=== PATIENT | male | born 1965 | race African-American/Black ===

== ENCOUNTER 2016-03-02 19:22 | Inpatient (IN) | payer OTHER ==
[~2016-03-02] VITALS: Ht 165.1 cm; Wt 78.0 kg
[~2016-03-02 19:22] MED LIST: ASPIRIN EC325 MG PO; FAMOTIDINE20 MG PO; FOLIC ACID1 MG PO; KEFLEX500 MG PO; LIBRIUM25 MG PO; LOSARTAN POTASS25 MG PO; METOPROLOL SUCC25 MG PO; MOTRIN800 MG PO; NIFEDIPINE ER30 MG PO; NORCO 7.5/321 TABLET PO; PRAVASTATIN SOD40 MG PO; THERAGRAN1 TABLET PO; THIAMINE HCL100 MG PO; Thiamine,Vitamin B1 PO
[2016-03-02 20:53] LABS: AMPHETAMINE NEGATIVE (500 ng/mL); BARBITURATES NEGATIVE (200 ng/mL); BENZODIAZEPINES NEGATIVE (150 ng/mL); COCAINE NEGATIVE (150 ng/mL); INTERNAL CONTROLS VALID? YES; METHADONE NEGATIVE (200 ng/mL); METHAMPHETAMINE NEGATIVE (500 ng/mL); OPIATES (MORPHINE) NEGATIVE (100 ng/mL); OXYCODONE NEGATIVE (100 ng/mL); PHENCYCLIDINE NEGATIVE (25 ng/mL); PROPOXYPHENE NEGATIVE (300 ng/mL); THC CANNABINOIDS NEGATIVE (50 ng/mL); TRICYCLIC ANTIDEPRESSANTS NEGATIVE (300 ng/mL)
[2016-03-02 21:02] LABS: SERUM ETHYL ALCOHOL < 10 mg/dL
[2016-03-02 21:11] LABS: CK-MB 4.8 ng/mL (0.0-4.9); CREATINE KINASE 372 IU/L (1-294); EOSINOPHIL (%) 0.3 % (0-5); HEMATOCRIT 36.2 % (38.0-50.0); IMMATURE GRANULOCYTE (%) 0.1 % (0.0-0.7); IMMATURE GRANULOCYTE COUNT 0.1 K/uL; LYMPHOCYTE COUNT 1.3 K/uL (1.0-2.8); MCH 28.1 PG (29.0-34.0); MCHC 33.7 G/DL (30.0-36.0); MCV 83.4 FL (86-99); MEAN PLAT.VOLUME 10.4 uM^3 (9.0-12.4); MONOCYTE (%) 4.4 % (3-12); MONOCYTE COUNT 0.5 K/uL (0-0.8); NEUTROPHIL (%) 83.6 % (45-76); NEUTROPHIL COUNT 9.3 K/uL (1.8-6.4); PLATELET COUNT 181 K/uL (156-360); RBC DIS.WIDTH-CV 13.8 % (11.8-14.6); RBC DIS.WIDTH-SD 40.8 % (39-53); RED BLOOD COUNT 4.34 M/uL (4.00-5.50); TOTAL CK 372 IU/L (1-294); WHITE BLOOD COUNT 11.2 K/uL (4.1-10.2)
[2016-03-02 21:12] LABS: TROP-I INTERPRETATION NEGATIVE; TROPONIN-I 0.25 ng/mL (0.0-0.30)
[2016-03-02 21:19] LABS: CHLORIDE 109 mEq/L (99-109); POTASSIUM 4.3 mEq/L (3.7-5.4); SODIUM 141 mEq/L (136-147)
[2016-03-02 21:21] LABS: GLUCOSE 170 mg/dL (70-99)
[2016-03-02 21:23] LABS: ANION GAP 10 MEQ/L (2-14); TOTAL BILIRUBIN 0.2 mg/dL (0.0-1.0)
[2016-03-02 21:25] LABS: ALKALINE PHOSPHATASE 79 IU/L (3-129); GFR ESTIMATE (CALCULATED) > 59 mL/min/
[2016-03-02 21:26] LABS: UREA NITROGEN (BUN) 16 mg/dL (9-23)
[2016-03-03 02:35] LABS: MAGNESIUM 2.3 mg/dL (1.3-2.7)
[2016-03-03 02:39] LABS: TOTAL BILIRUBIN 0.2 mg/dL (0.0-1.0)
[2016-03-03 02:40] LABS: ALKALINE PHOSPHATASE 77 IU/L (3-129)
[2016-03-03 02:42] LABS: DIRECT BILIRUBIN 0.1 mg/dL (0.0-0.3)
[2016-03-03 02:49] LABS: TROP-I INTERPRETATION NEGATIVE; TROPONIN-I 0.16 ng/mL (0.0-0.30)
[2016-03-03 03:42] VITALS: BP 159/92
[2016-03-03 08:02] VITALS: BP 154/95
[2016-03-03 09:27] LABS: ALKALINE PHOSPHATASE 68 IU/L (3-129); ANION GAP 8 MEQ/L (2-14); CHLORIDE 111 MEQ/L (99-109); GFR ESTIMATE (CALCULATED) > 59 mL/min/; GLUCOSE 121 mg/dL (70-99); SAMPLE HEMOLYSIS CHECK 0; SAMPLE ICTERIC CHECK 0; SAMPLE LIPEMIA CHECK 0; SODIUM 141 MEQ/L (136-147); TOTAL BILIRUBIN 0.3 MG/DL (0.0-1.0); UREA NITROGEN (BUN) 12 mg/dL (9-23)
[2016-03-03 09:39] LABS: TROP-I INTERPRETATION NEGATIVE; TROPONIN-I 0.27 ng/mL (0.0-0.30)
[2016-03-03 10:04] LABS: CREATINE KINASE 252 IU/L (1-294); TOTAL CK 252 IU/L (1-294)
[2016-03-03 10:05] LABS: CK-MB 3.8 ng/mL (0.0-4.9)
[2016-03-03 11:38] VITALS: BP 184/87
[2016-03-03 15:40] LABS: TROP-I INTERPRETATION INDETERMINATE; TROPONIN-I 0.32 ng/mL (0.0-0.30)
[2016-03-03 15:44] VITALS: BP 180/90
[2016-03-03 20:50] VITALS: BP 172/89
[2016-03-03 21:22] LABS: TROP-I INTERPRETATION INDETERMINATE; TROPONIN-I 0.35 ng/mL (0.0-0.30)
[2016-03-04] VITALS (7 sets, daily range): BP systolic 154–183; BP diastolic 87–109
[2016-03-04 03:46] LABS: TROP-I INTERPRETATION INDETERMINATE; TROPONIN-I 0.42 ng/mL (0.0-0.30)
[2016-03-04 09:55] LABS: HEMATOCRIT 37.2 % (38.0-50.0); MCH 27.7 PG (29.0-34.0); MCHC 33.1 G/DL (30.0-36.0); MCV 83.8 FL (86-99); MEAN PLAT.VOLUME 10.5 uM^3 (9.0-12.4); PLATELET COUNT 162 K/uL (156-360); RBC DIS.WIDTH-CV 13.6 % (11.8-14.6); RBC DIS.WIDTH-SD 41.8 % (39-53); RED BLOOD COUNT 4.44 M/uL (4.00-5.50); WHITE BLOOD COUNT 7.9 K/uL (4.1-10.2)
[2016-03-04 10:15] LABS: ANION GAP 8 MEQ/L (2-14); CHLORIDE 106 MEQ/L (99-109); CREATINE KINASE 191 IU/L (1-294); GFR ESTIMATE (CALCULATED) > 59 mL/min/; GLUCOSE 166 mg/dL (70-99); POTASSIUM 3.9 MEQ/L (3.7-5.4); SAMPLE HEMOLYSIS CHECK 0; SAMPLE ICTERIC CHECK 0; SAMPLE LIPEMIA CHECK 0; SODIUM 139 MEQ/L (136-147); UREA NITROGEN (BUN) 11 mg/dL (9-23)
[2016-03-04 10:18] LABS: TROP-I INTERPRETATION NEGATIVE; TROPONIN-I 0.24 ng/mL (0.0-0.30)
[2016-03-04 15:37] LABS: TROP-I INTERPRETATION NEGATIVE; TROPONIN-I 0.22 ng/mL (0.0-0.30)
[2016-03-04 21:16] LABS: TROP-I INTERPRETATION NEGATIVE; TROPONIN-I 0.23 ng/mL (0.0-0.30)
[2016-03-05 03:16] LABS: TROP-I INTERPRETATION INDETERMINATE; TROPONIN-I 0.38 ng/mL (0.0-0.30)
[2016-03-05 04:00] VITALS: BP 160/91
[2016-03-05 07:48] VITALS: BP 158/101
[2016-03-05 10:07] LABS: Estimated Average Glucose 128 mg/dL (70-123); HEMOGLOBIN A1c (GLYCOHEMOGLOB) 6.1 % HGB (Below 5.7)
[2016-03-05 10:15] LABS: HDL CHOLESTEROL 46 MG/DL (Desirable>=40); LDL CHOLESTEROL 113 mg/dL (Desirable<100); NON-HDL CHOLESTEROL 144 mg/dL (Desirable<160); TOTAL CHOLESTEROL 190 mg/dL (Desirable<200); TRIGLYCERIDES 155 MG/DL (Normal: <150)
[2016-03-05 11:40] VITALS: BP 135/68
[2016-03-05 18:35] LABS: POINT-OF-CARE METER ID UU13113819
[2016-03-05 20:12] VITALS: BP 174/95
[2016-03-05 21:58] LABS: POINT-OF-CARE METER ID UU14174216; POINT-OF-CARE USER ID ENVMNS
[2016-03-05 23:30] VITALS: BP 178/98
[2016-03-06 03:24] LABS: TROP-I INTERPRETATION POSITIVE
[2016-03-06 03:32] LABS: TROPONIN-I 0.64 ng/mL (0.0-0.30)
[2016-03-06 04:22] VITALS: BP 161/92
[2016-03-06 07:25] LABS: POINT-OF-CARE METER ID UU13113781
[2016-03-06 09:08] VITALS: BP 136/96
[2016-03-06 10:30] LABS: TROP-I INTERPRETATION POSITIVE
[2016-03-06 10:33] LABS: TROPONIN-I 1.97 ng/mL (0.0-0.30)
[2016-03-06 11:15] LABS: POINT-OF-CARE METER ID UU13113781
[2016-03-06 13:16] VITALS: BP 135/82
[2016-03-06 15:38] LABS: TROP-I INTERPRETATION POSITIVE; TROPONIN-I 1.84 ng/mL (0.0-0.30)
[2016-03-06 16:19] VITALS: BP 134/81
[2016-03-06 16:50] LABS: POINT-OF-CARE METER ID UU13113781
[2016-03-06 20:00] VITALS: BP 124/71
[2016-03-06 20:47] LABS: POINT-OF-CARE METER ID UU13113781; POINT-OF-CARE USER ID ENVMNS
[2016-03-06 21:19] LABS: TROP-I INTERPRETATION POSITIVE
[2016-03-06 21:21] LABS: TROPONIN-I 1.85 ng/mL (0.0-0.30)
[2016-03-07] VITALS: BP 125/79
[2016-03-07 03:21] LABS: TROP-I INTERPRETATION POSITIVE
[2016-03-07 03:39] LABS: TROPONIN-I 2.83 ng/mL (0.0-0.30)
[2016-03-07 04:00] VITALS: BP 118/62
[2016-03-07 06:36] LABS: ANION GAP 12 MEQ/L (2-14); CHLORIDE 107 MEQ/L (99-109); GFR ESTIMATE (CALCULATED) > 59 mL/min/; GLUCOSE 136 mg/dL (70-99); POTASSIUM 3.8 MEQ/L (3.7-5.4); SAMPLE HEMOLYSIS CHECK 0; SAMPLE ICTERIC CHECK 0; SAMPLE LIPEMIA CHECK 0; SODIUM 139 MEQ/L (136-147); UREA NITROGEN (BUN) 26 mg/dL (9-23)
[2016-03-07 08:51] VITALS: BP 144/96
[2016-03-07 10:18] LABS: TROP-I INTERPRETATION POSITIVE
[2016-03-07 10:19] LABS: TROPONIN-I 1.75 ng/mL (0.0-0.30)
[2016-03-07 11:06] VITALS: BP 137/87
[2016-03-07 16:16] VITALS: BP 130/81
[2016-03-07 16:18] LABS: TROP-I INTERPRETATION POSITIVE
[2016-03-07 16:40] LABS: TROPONIN-I 2.03 ng/mL (0.0-0.30)
[2016-03-07 19:14] VITALS: BP 127/83
[2016-03-07 21:05] LABS: POINT-OF-CARE METER ID UU13113698
[2016-03-07 21:26] LABS: TROP-I INTERPRETATION POSITIVE
[2016-03-07 22:12] LABS: TROPONIN-I 1.99 ng/mL (0.0-0.30)
[2016-03-08] VITALS (8 sets, daily range): BP systolic 124–187; BP diastolic 57–98
[2016-03-08 02:59] LABS: TROP-I INTERPRETATION POSITIVE
[2016-03-08 03:01] LABS: TROPONIN-I 2.02 ng/mL (0.0-0.30)
[2016-03-08 07:03] LABS: MCH 28.1 PG (29.0-34.0); MCHC 33.6 G/DL (30.0-36.0); MCV 83.5 FL (86-99); MEAN PLAT.VOLUME 10.1 uM^3 (9.0-12.4); PLATELET COUNT 174 K/uL (156-360); RBC DIS.WIDTH-CV 13.5 % (11.8-14.6); RBC DIS.WIDTH-SD 41.5 % (39-53); RED BLOOD COUNT 4.31 M/uL (4.00-5.50); WHITE BLOOD COUNT 6.9 K/uL (4.1-10.2)
[2016-03-08 07:35] LABS: ALKALINE PHOSPHATASE 67 IU/L (3-129); ANION GAP 7 MEQ/L (2-14); CHLORIDE 110 MEQ/L (99-109); GFR ESTIMATE (CALCULATED) > 59 mL/min/; GLUCOSE 142 mg/dL (70-99); POTASSIUM 3.9 MEQ/L (3.7-5.4); SAMPLE HEMOLYSIS CHECK 0; SAMPLE ICTERIC CHECK 0; SAMPLE LIPEMIA CHECK 0; SODIUM 139 MEQ/L (136-147); TOTAL BILIRUBIN 0.4 MG/DL (0.0-1.0); UREA NITROGEN (BUN) 17 mg/dL (9-23)
[2016-03-08 09:22] LABS: TROP-I INTERPRETATION POSITIVE; TROPONIN-I 1.85 ng/mL (0.0-0.30)
[2016-03-08 15:43] LABS: TROP-I INTERPRETATION POSITIVE
[2016-03-08 16:03] LABS: TROPONIN-I 1.42 ng/mL (0.0-0.30)
[2016-03-08 21:19] LABS: TROP-I INTERPRETATION POSITIVE
[2016-03-08 21:21] LABS: TROPONIN-I 1.33 ng/mL (0.0-0.30)
[2016-03-08 23:59] LABS: POINT-OF-CARE METER ID UU13113698
[2016-03-09 00:10] VITALS: BP 154/68
[2016-03-09 03:35] LABS: TROP-I INTERPRETATION POSITIVE
[2016-03-09 03:36] LABS: TROPONIN-I 1.99 ng/mL (0.0-0.30)
[2016-03-09 04:10] VITALS: BP 140/90
[2016-03-09 07:51] LABS: POINT-OF-CARE METER ID UU14174216
[2016-03-09 08:12] VITALS: BP 159/101
[2016-03-09 10:34] LABS: POINT-OF-CARE METER ID UU14174216
[2016-03-09 11:23] VITALS: BP 142/82
[2016-03-09 16:12] LABS: POINT-OF-CARE METER ID UU14174216
[2016-03-09 20:47] VITALS: BP 142/80
[2016-03-09 21:23] LABS: POINT-OF-CARE METER ID UU14174216
[2016-03-09 23:45] VITALS: BP 151/97
[2016-03-10 03:16] VITALS: BP 130/74
[2016-03-10 03:30] LABS: EOSINOPHIL (%) 1.6 % (0-5); EOSINOPHIL COUNT 0.1 K/uL (0-0.3); HEMATOCRIT 35.1 % (38.0-50.0); IMMATURE GRANULOCYTE (%) 0.2 % (0.0-0.7); IMMATURE GRANULOCYTE COUNT 0.1 K/uL; MCHC 34.2 G/DL (30.0-36.0); MCV 81.8 FL (86-99); MEAN PLAT.VOLUME 10.5 uM^3 (9.0-12.4); MONOCYTE (%) 6.7 % (3-12); MONOCYTE COUNT 0.4 K/uL (0-0.8); NEUTROPHIL (%) 60.3 % (45-76); NEUTROPHIL COUNT 3.9 K/uL (1.8-6.4); PLATELET COUNT 213 K/uL (156-360); RBC DIS.WIDTH-CV 13.2 % (11.8-14.6); RBC DIS.WIDTH-SD 38.5 % (39-53); RED BLOOD COUNT 4.29 M/uL (4.00-5.50); WHITE BLOOD COUNT 6.4 K/uL (4.1-10.2)
[2016-03-10 03:34] LABS: CHLORIDE 110 mEq/L (99-109); POTASSIUM 3.8 mEq/L (3.7-5.4); SODIUM 140 mEq/L (136-147)
[2016-03-10 03:36] LABS: GLUCOSE 124 mg/dL (70-99)
[2016-03-10 03:37] LABS: ANION GAP 9 MEQ/L (2-14)
[2016-03-10 03:38] LABS: TOTAL BILIRUBIN 0.3 mg/dL (0.0-1.0)
[2016-03-10 03:40] LABS: ALKALINE PHOSPHATASE 69 IU/L (3-129); GFR ESTIMATE (CALCULATED) > 59 mL/min/
[2016-03-10 03:41] LABS: UREA NITROGEN (BUN) 15 mg/dL (9-23)
[2016-03-10 03:46] LABS: TROP-I INTERPRETATION POSITIVE
[2016-03-10 03:52] LABS: TROPONIN-I 1.59 ng/mL (0.0-0.30)
[2016-03-10 07:45] LABS: POINT-OF-CARE METER ID UU14174216; POINT-OF-CARE USER ID ENVKC36
[2016-03-10 09:00] VITALS: BP 140/91
[2016-03-10 09:11] LABS: TROP-I INTERPRETATION POSITIVE
[2016-03-10 09:20] LABS: TROPONIN-I 1.52 ng/mL (0.0-0.30)
[2016-03-10 11:51] LABS: POINT-OF-CARE METER ID UU14174216; POINT-OF-CARE USER ID ENVKC36
[2016-03-10 12:00] VITALS: BP 142/88
[2016-03-10 16:36] LABS: POINT-OF-CARE METER ID UU14174216; POINT-OF-CARE USER ID ENVKC36
[2016-03-10 17:33] VITALS: BP 157/68
[2016-03-10 19:05] VITALS: BP 141/82
[2016-03-10 21:50] LABS: POINT-OF-CARE METER ID UU13113698
[2016-03-10 23:10] VITALS: BP 153/88
[2016-03-11 02:45] LABS: EOSINOPHIL (%) 1.4 % (0-5); EOSINOPHIL COUNT 0.1 K/uL (0-0.3); HEMATOCRIT 35.9 % (38.0-50.0); IMMATURE GRANULOCYTE (%) 0.2 % (0.0-0.7); IMMATURE GRANULOCYTE COUNT 0.1 K/uL; MCH 27.9 PG (29.0-34.0); MCHC 34.3 G/DL (30.0-36.0); MCV 81.4 FL (86-99); MEAN PLAT.VOLUME 9.9 uM^3 (9.0-12.4); MONOCYTE (%) 7.4 % (3-12); MONOCYTE COUNT 0.5 K/uL (0-0.8); NEUTROPHIL (%) 59.8 % (45-76); NEUTROPHIL COUNT 3.8 K/uL (1.8-6.4); PLATELET COUNT 206 K/uL (156-360); RBC DIS.WIDTH-CV 13.3 % (11.8-14.6); RBC DIS.WIDTH-SD 37.9 % (39-53); RED BLOOD COUNT 4.41 M/uL (4.00-5.50); WHITE BLOOD COUNT 6.4 K/uL (4.1-10.2)
[2016-03-11 02:54] LABS: CHLORIDE 108 mEq/L (99-109); POTASSIUM 3.8 mEq/L (3.7-5.4); SODIUM 140 mEq/L (136-147)
[2016-03-11 02:56] LABS: GLUCOSE 139 mg/dL (70-99)
[2016-03-11 02:58] LABS: ANION GAP 6 MEQ/L (2-14)
[2016-03-11 02:59] LABS: TOTAL BILIRUBIN 0.2 mg/dL (0.0-1.0)
[2016-03-11 03:00] LABS: ALKALINE PHOSPHATASE 76 IU/L (3-129); GFR ESTIMATE (CALCULATED) > 59 mL/min/
[2016-03-11 03:01] LABS: UREA NITROGEN (BUN) 18 mg/dL (9-23)
[2016-03-11 03:05] VITALS: BP 154/102
[2016-03-11 03:05] LABS: TROP-I INTERPRETATION POSITIVE
[2016-03-11 03:06] LABS: TROPONIN-I 1.31 ng/mL (0.0-0.30)
[2016-03-11 07:38] VITALS: BP 143/83
[2016-03-11 07:49] LABS: POINT-OF-CARE METER ID UU13113781; POINT-OF-CARE USER ID ENVKC36
[2016-03-11 09:26] LABS: TROP-I INTERPRETATION POSITIVE
[2016-03-11 09:34] LABS: TROPONIN-I 1.16 ng/mL (0.0-0.30)
[2016-03-11 11:57] LABS: POINT-OF-CARE METER ID UU13113781; POINT-OF-CARE USER ID ENVKC36
[2016-03-11 12:07] VITALS: BP 133/84
[2016-03-11 15:33] LABS: TROP-I INTERPRETATION POSITIVE; TROPONIN-I 1.13 ng/mL (0.0-0.30)
[2016-03-11 16:00] VITALS: BP 140/84
[2016-03-11 16:38] LABS: POINT-OF-CARE METER ID UU13113781; POINT-OF-CARE USER ID ENVKC36
[2016-03-11 20:00] VITALS: BP 159/89
[2016-03-11 21:14] LABS: TROP-I INTERPRETATION POSITIVE
[2016-03-11 21:41] LABS: TROPONIN-I 1.07 ng/mL (0.0-0.30)
[2016-03-11 22:11] LABS: POINT-OF-CARE METER ID UU13113781
[2016-03-12] VITALS: BP 159/87
[2016-03-12 03:08] LABS: TROP-I INTERPRETATION POSITIVE
[2016-03-12 03:10] LABS: TROPONIN-I 0.94 ng/mL (0.0-0.30)
[2016-03-12 04:00] VITALS: BP 157/81
[2016-03-12 07:35] LABS: POINT-OF-CARE METER ID UU14174216
[2016-03-12 09:14] VITALS: BP 141/85
[2016-03-12 09:44] LABS: TROP-I INTERPRETATION POSITIVE
[2016-03-12 09:46] LABS: TROPONIN-I 0.61 ng/mL (0.0-0.30)
[2016-03-12 11:18] LABS: POINT-OF-CARE METER ID UU14174216
[2016-03-12] MEDS ORDERED: ASPIR-LOW81 MG PO (12:13)
[2016-03-12] MEDS ORDERED: PRAVASTATIN SOD40 MG PO (12:13)
[2016-03-12] MEDS ORDERED: LOSARTAN POTAS100 MG PO (12:13)
[2016-03-12] MEDS ORDERED: AMLODIPINE BESY10 MG PO (12:13)
[2016-03-12] MEDS ORDERED: METOPROLOL SUCC50 MG PO (12:13)
[2016-03-12] MEDS ORDERED: BACTROBAN CREAM15 GM TP (12:14)
[2016-03-12] MEDS ORDERED: CYANOCOBALAM1000 MCG PO (12:14)
[2016-03-12] MEDS ORDERED: COLACE100 MG PO (12:14)
[2016-03-12] MEDS ORDERED: THERAGRAN1 TABLET PO (12:14)
[2016-03-12] MEDS ORDERED: Thiamine,Vitamin B1 PO (12:14)
[2016-03-12] MEDS ORDERED: FOLIC ACID1 MG PO (12:14)
== END 2016-03-12 17:04 | DRG 264 ==
LOC: EME 19:22 → EDOF 03-03 01:02 → 5WEST 03-03 01:02 → 4EAST 03-04 13:22 → 5WEST 03-04 13:22 → 4EAST 03-05 20:13
PROVIDERS: Emergency Medicine; Hospitalist; Internal Medicine; Physician Assistant; Physician Assistant Medical
PROC: 0JB00ZZ Excision of Scalp Subcutaneous Tissue and Fascia, Open Approach (ICD-10-PCS; principal; 2016-03-03)
PROC: B211YZZ Fluoroscopy of Multiple Coronary Arteries using Other Contrast (ICD-10-PCS; 2016-03-05)
DX: I25.110 Atherosclerotic heart disease of native coronary artery with unstable angina pectoris (principal); F10.231 Alcohol dependence with withdrawal delirium; I96 Gangrene, not elsewhere classified; I11.0 Hypertensive heart disease with heart failure; I50.22 Chronic systolic (congestive) heart failure; E87.2 Acidosis; S01.00XA Unspecified open wound of scalp, initial encounter; T79.6XXA Traumatic ischemia of muscle, initial encounter; K72.90 Hepatic failure, unspecified without coma; I42.9 Cardiomyopathy, unspecified; Z59.0 Homelessness; R41.82 Altered mental status, unspecified; I25.82 Chronic total occlusion of coronary artery; X58.XXXA Exposure to other specified factors, initial encounter; F17.210 Nicotine dependence, cigarettes, uncomplicated; I67.82 Cerebral ischemia; F19.188 Other psychoactive substance abuse with other psychoactive substance-induced disorder; Z91.19 Patient's noncompliance with other medical treatment and regimen; I25.2 Old myocardial infarction; S81.001D Unspecified open wound, right knee, subsequent encounter; S81.002D Unspecified open wound, left knee, subsequent encounter; G47.10 Hypersomnia, unspecified; E78.5 Hyperlipidemia, unspecified; R55 Syncope and collapse
CPT/HCPCS: 70450; 71010; 72125; 74020; 80048; 80053; 80061; 80076; 81003; 82140; 82550; 82550 91; 82553; 82607; 82948; 83036; 83605; 83735; 84484; 85025; 85027; 85347; 93005; 94799; 99281; 99285; C1725; C1769; C1887; G0378; G0478; G0480; J0360; J1644; J1650; J1815; J2060; J2250; J3010; J7030; J7050

== ENCOUNTER 2016-04-03 16:02 | Inpatient (IN) | payer OTHER ==
[~2016-04-03] VITALS: Ht 165.1 cm; Wt 74.0 kg
[~2016-04-03 16:02] MED LIST changes: +AMLODIPINE BESY10 MG PO; +ASPIR-LOW81 MG PO; +BACTROBAN CREAM15 GM TP; +COLACE100 MG PO; +CYANOCOBALAM1000 MCG PO; +LOSARTAN POTAS100 MG PO; +METOPROLOL SUCC50 MG PO
[2016-04-03 16:28] LABS: CHLORIDE 102 mEq/L (99-109); MCH 27.4 PG (29.0-34.0); MCHC 33.8 G/DL (30.0-36.0); MCV 81.1 FL (86-99); MEAN PLAT.VOLUME 9.8 uM^3 (9.0-12.4); PLATELET COUNT 220 K/uL (156-360); POTASSIUM 3.6 mEq/L (3.7-5.4); RBC DIS.WIDTH-CV 14.3 % (11.8-14.6); RBC DIS.WIDTH-SD 40.9 % (39-53); RED BLOOD COUNT 4.81 M/uL (4.00-5.50); SODIUM 140 mEq/L (136-147); WHITE BLOOD COUNT 8.9 K/uL (4.1-10.2)
[2016-04-03 16:30] LABS: GLUCOSE 147 mg/dL (70-99)
[2016-04-03 16:31] LABS: ANION GAP 17 MEQ/L (2-14)
[2016-04-03 16:33] LABS: SERUM ETHYL ALCOHOL 84 mg/dL
[2016-04-03 16:34] LABS: GFR ESTIMATE (CALCULATED) > 59 mL/min/
[2016-04-03 16:35] LABS: UREA NITROGEN (BUN) 17 mg/dL (9-23)
[2016-04-03 16:42] LABS: TROP-I INTERPRETATION POSITIVE
[2016-04-03 16:46] LABS: TROPONIN-I 6.27 ng/mL (0.0-0.30)
[2016-04-03 17:42] LABS: PROTHROMBIN TIME 10.2 (9.2-11.2)
[2016-04-03 20:49] LABS: ADD MIUA? YES; BILIRUBIN NEGATIVE; BLOOD NEGATIVE; COLOR YELLOW ((YELLOW)); GLUCOSE (STRIP) NEGATIVE; KETONES NEGATIVE; LEUKOCYTES NEGATIVE; NITRITE NEGATIVE; PROTEIN (STRIP) 30; SPECIFIC GRAVITY 1.012 (1.000-1.030); UROBILINOGEN 0.2 MG/DL (0.2-1.0)
[2016-04-03 20:58] LABS: ADD MEDTOX COMMENT Y; AMPHETAMINE NEGATIVE (500 ng/mL); BARBITURATES NEGATIVE (200 ng/mL); BENZODIAZEPINES NEGATIVE (150 ng/mL); COCAINE NEGATIVE (150 ng/mL); INTERNAL CONTROLS VALID? YES; METHADONE NEGATIVE (200 ng/mL); METHAMPHETAMINE NEGATIVE (500 ng/mL); OPIATES (MORPHINE) NEGATIVE (100 ng/mL); OXYCODONE NEGATIVE (100 ng/mL); PHENCYCLIDINE NEGATIVE (25 ng/mL); PROPOXYPHENE NEGATIVE (300 ng/mL); THC CANNABINOIDS PRESUMPTIVE POSITIVE (50 ng/mL); TRICYCLIC ANTIDEPRESSANTS NEGATIVE (300 ng/mL)
[2016-04-03 21:34] LABS: BACTERIA 1+; CASTS PRESENT /LPF; CRYSTALS NONE SEEN; EPITHELIAL CELLS RARE; HYALINE CASTS 0-5 /LPF; MUCUS 1+; RED BLOOD CELLS 0-5 /HPF (0-5); UCUL ADDED? NO; WHITE BLOOD CELLS 0-5 /HPF (0-5)
[2016-04-03 22:14] LABS: TOTAL BILIRUBIN 0.2 mg/dL (0.0-1.0)
[2016-04-03 22:15] LABS: ALKALINE PHOSPHATASE 100 IU/L (3-129)
[2016-04-03 22:18] LABS: DIRECT BILIRUBIN 0.1 mg/dL (0.0-0.3)
[2016-04-03 22:19] LABS: CREATINE KINASE 747 IU/L (1-294)
[2016-04-04 00:43] LABS: TROP-I INTERPRETATION POSITIVE
[2016-04-04 00:50] LABS: TROPONIN-I 4.86 ng/mL (0.0-0.30)
[2016-04-04 02:00] VITALS: BP 140/79; BP 143/75
[2016-04-04 04:00] VITALS: BP 139/78
[2016-04-04 05:53] LABS: HEMATOCRIT 36.1 % (38.0-50.0); MCH 26.7 PG (29.0-34.0); MCHC 32.7 G/DL (30.0-36.0); MCV 81.7 FL (86-99); MEAN PLAT.VOLUME 10.2 uM^3 (9.0-12.4); PLATELET COUNT 163 K/uL (156-360); RBC DIS.WIDTH-CV 14.1 % (11.8-14.6); RBC DIS.WIDTH-SD 41.9 % (39-53); RED BLOOD COUNT 4.42 M/uL (4.00-5.50); WHITE BLOOD COUNT 6.1 K/uL (4.1-10.2)
[2016-04-04 06:06] LABS: ALKALINE PHOSPHATASE 76 IU/L (3-129); ANION GAP 10 MEQ/L (2-14); CHLORIDE 103 MEQ/L (99-109); GFR ESTIMATE (CALCULATED) > 59 mL/min/; GLUCOSE 118 mg/dL (70-99); POTASSIUM 3.5 MEQ/L (3.7-5.4); SAMPLE HEMOLYSIS CHECK 0; SAMPLE ICTERIC CHECK 0; SAMPLE LIPEMIA CHECK 0; SODIUM 138 MEQ/L (136-147); TOTAL BILIRUBIN 0.4 MG/DL (0.0-1.0); UREA NITROGEN (BUN) 16 mg/dL (9-23)
[2016-04-04 06:07] LABS: TROP-I INTERPRETATION POSITIVE
[2016-04-04 06:23] LABS: TROPONIN-I 4.91 ng/mL (0.0-0.30)
[2016-04-04 08:27] VITALS: BP 162/94
[2016-04-04 11:20] VITALS: BP 171/106
[2016-04-04 15:28] VITALS: BP 154/84
[2016-04-04 20:00] VITALS: BP 155/85; BP 155/89
[2016-04-05] VITALS: BP 145/72
[2016-04-05 04:00] VITALS: BP 149/81
[2016-04-05 06:39] LABS: MCH 27.2 PG (29.0-34.0); MCHC 33.2 G/DL (30.0-36.0); MCV 81.9 FL (86-99); MEAN PLAT.VOLUME 10.6 uM^3 (9.0-12.4); PLATELET COUNT 162 K/uL (156-360); RBC DIS.WIDTH-CV 14.1 % (11.8-14.6); RED BLOOD COUNT 4.52 M/uL (4.00-5.50); WHITE BLOOD COUNT 6.9 K/uL (4.1-10.2)
[2016-04-05 07:43] VITALS: BP 156/94
[2016-04-05 07:59] LABS: ANION GAP 10 MEQ/L (2-14); CHLORIDE 105 MEQ/L (99-109); GFR ESTIMATE (CALCULATED) > 59 mL/min/; GLUCOSE 145 mg/dL (70-99); MAGNESIUM 1.9 mg/dl (1.3-2.7); SAMPLE HEMOLYSIS CHECK 0; SAMPLE ICTERIC CHECK 0; SAMPLE LIPEMIA CHECK 0; SODIUM 138 MEQ/L (136-147); UREA NITROGEN (BUN) 19 mg/dL (9-23)
[2016-04-05 08:25] LABS: TROP-I INTERPRETATION POSITIVE
[2016-04-05 12:10] VITALS: BP 162/101
[2016-04-05 15:00] VITALS: BP 127/83
[2016-04-05 20:44] VITALS: BP 176/99
[2016-04-06 00:09] VITALS: BP 166/86
[2016-04-06 03:29] VITALS: BP 147/78
[2016-04-06 06:52] LABS: EOSINOPHIL (%) 1.6 % (0-5); EOSINOPHIL COUNT 0.1 K/uL (0-0.3); HEMATOCRIT 36.1 % (38.0-50.0); IMMATURE GRANULOCYTE (%) 0.9 % (0.0-0.7); IMMATURE GRANULOCYTE COUNT 0.5 K/uL; LYMPHOCYTE COUNT 1.9 K/uL (1.0-2.8); MCH 27.6 PG (29.0-34.0); MCHC 33.8 G/DL (30.0-36.0); MCV 81.7 FL (86-99); MEAN PLAT.VOLUME 10.6 uM^3 (9.0-12.4); MONOCYTE (%) 7.1 % (3-12); MONOCYTE COUNT 0.4 K/uL (0-0.8); NEUTROPHIL (%) 56.3 % (45-76); NEUTROPHIL COUNT 3.1 K/uL (1.8-6.4); PLATELET COUNT 166 K/uL (156-360); RBC DIS.WIDTH-CV 14.1 % (11.8-14.6); RBC DIS.WIDTH-SD 40.5 % (39-53); RED BLOOD COUNT 4.42 M/uL (4.00-5.50); WHITE BLOOD COUNT 5.5 K/uL (4.1-10.2)
[2016-04-06 07:03] VITALS: BP 174/100
[2016-04-06 07:48] LABS: ANION GAP 8 MEQ/L (2-14); CHLORIDE 106 MEQ/L (99-109); GFR ESTIMATE (CALCULATED) > 59 mL/min/; GLUCOSE 126 mg/dL (70-99); POTASSIUM 3.9 MEQ/L (3.7-5.4); SAMPLE HEMOLYSIS CHECK 0; SAMPLE ICTERIC CHECK 0; SAMPLE LIPEMIA CHECK 0; SODIUM 139 MEQ/L (136-147); UREA NITROGEN (BUN) 15 mg/dL (9-23)
[2016-04-06 07:49] LABS: TROP-I INTERPRETATION POSITIVE
[2016-04-06 07:53] LABS: TROPONIN-I 2.49 ng/mL (0.0-0.30)
[2016-04-06 11:25] VITALS: BP 157/95
[2016-04-06] MEDS ORDERED: LISINOPRIL5 MG PO (12:37)
[2016-04-06] MEDS ORDERED: Thiamine,Vitamin B1 PO (12:37)
[2016-04-06] MEDS ORDERED: CLOPIDOGREL75 MG PO (12:37)
[2016-04-06] MEDS ORDERED: CEPHALEXIN500 MG PO (12:37)
[2016-04-06] MEDS ORDERED: LOPRESSOR25 MG PO (12:37)
[2016-04-06] MEDS ORDERED: ATORVASTATIN CA40 MG PO (12:37)
[2016-04-06] MEDS ORDERED: ASPIR-LOW81 MG PO (12:37)
[2016-04-06] MEDS ORDERED: FOLIC ACID1 MG PO (12:37)
== END 2016-04-06 17:20 | disposition home or self-care (01) | DRG 281 ==
LOC: EME 16:02 → 4EAST 20:12 → EDOF 20:12 → 4EAST 04-04 02:43
PROVIDERS: Emergency Medicine; Hospitalist; Internal Medicine
DX: I21.4 Non-ST elevation (NSTEMI) myocardial infarction (principal); I47.2 Ventricular tachycardia; N17.9 Acute kidney failure, unspecified; T68.XXXA Hypothermia, initial encounter; X31.XXXA Exposure to excessive natural cold, initial encounter; I25.10 Atherosclerotic heart disease of native coronary artery without angina pectoris; F10.20 Alcohol dependence, uncomplicated; I10 Essential (primary) hypertension; F32.9 Major depressive disorder, single episode, unspecified; F17.210 Nicotine dependence, cigarettes, uncomplicated; F12.10 Cannabis abuse, uncomplicated; L03.115 Cellulitis of right lower limb; E87.6 Hypokalemia; M79.651 Pain in right thigh; Z59.0 Homelessness; Z56.0 Unemployment, unspecified; Z91.19 Patient's noncompliance with other medical treatment and regimen
CPT/HCPCS: 70450; 73552; 80048; 80053; 80076; 81003; 82550; 82550 91; 83605; 83735; 84484; 84999; 85025; 85027; 85610; 85730; 87040; 93005; 93971; 99281; 99285; G0480; J1644; J7030; J7040

== ENCOUNTER 2016-04-09 19:04 | Emergency (ER) | payer OTHER ==
[~2016-04-09] VITALS: Ht 165.1 cm; Wt 76.6 kg
[~2016-04-09 19:04] MED LIST changes: +ATORVASTATIN CA40 MG PO; +CEPHALEXIN500 MG PO; +CLOPIDOGREL75 MG PO; +LISINOPRIL5 MG PO; +LOPRESSOR25 MG PO
[2016-04-09] MEDS ORDERED: VALIUM5 MG PO (22:13)
[2016-04-09] MEDS ORDERED: MOTRIN800 MG PO (22:13)
[2016-04-09] MEDS ORDERED: ULTRACET1 TABLET PO (22:13)
[2016-04-09 22:32] VITALS: BP 170/108
== END 2016-04-09 22:37 | disposition home or self-care (01) ==
LOC: RME 19:04 → EME 19:04 → RME 22:37
DX: S16.1XXA Strain of muscle, fascia and tendon at neck level, initial encounter (principal); S39.012A Strain of muscle, fascia and tendon of lower back, initial encounter; S70.11XA Contusion of right thigh, initial encounter; V73.1XXA Passenger on bus injured in collision with car, pick-up truck or van in nontraffic accident, initial encounter; I10 Essential (primary) hypertension; F17.200 Nicotine dependence, unspecified, uncomplicated
CPT/HCPCS: 72040; 72100; 73552; 99281; 99284

== ENCOUNTER 2016-04-11 12:18 | Emergency (ER) | payer OTHER ==
[~2016-04-11] VITALS: Ht 165.1 cm; Wt 77.5 kg
[~2016-04-11 12:18] MED LIST changes: +ULTRACET1 TABLET PO; +VALIUM5 MG PO
[2016-04-11 12:58] LABS: CHLORIDE 103 mEq/L (99-109); POTASSIUM 3.7 mEq/L (3.7-5.4); SODIUM 140 mEq/L (136-147)
[2016-04-11 12:59] LABS: EOSINOPHIL (%) 0.8 % (0-5); EOSINOPHIL COUNT 0.1 K/uL (0-0.3); HEMATOCRIT 34.6 % (38.0-50.0); IMMATURE GRANULOCYTE (%) 0.1 % (0.0-0.7); IMMATURE GRANULOCYTE COUNT 0.1 K/uL; LYMPHOCYTE COUNT 1.6 K/uL (1.0-2.8); MCH 27.9 PG (29.0-34.0); MCHC 34.1 G/DL (30.0-36.0); MCV 81.8 FL (86-99); MEAN PLAT.VOLUME 10.1 uM^3 (9.0-12.4); MONOCYTE (%) 6.7 % (3-12); MONOCYTE COUNT 0.5 K/uL (0-0.8); PLATELET COUNT 199 K/uL (156-360); RBC DIS.WIDTH-CV 14.5 % (11.8-14.6); RBC DIS.WIDTH-SD 42.1 % (39-53); RED BLOOD COUNT 4.23 M/uL (4.00-5.50)
[2016-04-11 13:00] LABS: GLUCOSE 109 mg/dL (70-99); WHITE BLOOD COUNT 7.2 K/uL (4.1-10.2)
[2016-04-11 13:01] LABS: ANION GAP 11 MEQ/L (2-14)
[2016-04-11 13:03] LABS: SERUM ETHYL ALCOHOL < 10 mg/dL
[2016-04-11 13:04] LABS: GFR ESTIMATE (CALCULATED) > 59 mL/min/; UREA NITROGEN (BUN) 14 mg/dL (9-23)
[2016-04-11 14:10] VITALS: BP 149/89
== END 2016-04-11 14:53 | disposition home or self-care (01) ==
LOC: EME 12:18
PROVIDERS: Emergency Medicine
DX: T69.9XXA Effect of reduced temperature, unspecified, initial encounter (principal); F10.120 Alcohol abuse with intoxication, uncomplicated; I10 Essential (primary) hypertension; F17.200 Nicotine dependence, unspecified, uncomplicated
CPT/HCPCS: 80048; 85025; 99281; 99284; G0480

== ENCOUNTER 2016-04-13 18:22 | Inpatient (IN) | payer OTHER ==
[~2016-04-13] VITALS: Ht 152.4 cm; Wt 73.8 kg
[2016-04-13 19:30] LABS: HEMATOCRIT 35.6 % (38.0-50.0); MCH 27.6 PG (29.0-34.0); MCHC 33.1 G/DL (30.0-36.0); MCV 83.2 FL (86-99); MEAN PLAT.VOLUME 10.2 uM^3 (9.0-12.4); PLATELET COUNT 198 K/uL (156-360); RBC DIS.WIDTH-SD 45.6 % (39-53); RED BLOOD COUNT 4.28 M/uL (4.00-5.50); WHITE BLOOD COUNT 5.9 K/uL (4.1-10.2)
[2016-04-13 19:38] LABS: CHLORIDE 110 mEq/L (99-109); POTASSIUM 4.1 mEq/L (3.7-5.4); SODIUM 147 mEq/L (136-147)
[2016-04-13 19:41] LABS: GLUCOSE 186 mg/dL (70-99)
[2016-04-13 19:42] LABS: ANION GAP 15 MEQ/L (2-14)
[2016-04-13 19:44] LABS: GFR ESTIMATE (CALCULATED) > 59 mL/min/
[2016-04-13 19:45] LABS: UREA NITROGEN (BUN) 16 mg/dL (9-23)
[2016-04-13 20:04] LABS: TROP-I INTERPRETATION INDETERMINATE; TROPONIN-I 0.54 ng/mL (0.0-0.30)
[2016-04-14] VITALS (8 sets, daily range): BP systolic 136–177; BP diastolic 68–103
[2016-04-14 02:03] LABS: TROP-I INTERPRETATION INDETERMINATE; TROPONIN-I 0.55 ng/mL (0.0-0.30)
[2016-04-14 09:21] LABS: ANION GAP 9 MEQ/L (2-14); CHLORIDE 106 MEQ/L (99-109); GFR ESTIMATE (CALCULATED) > 59 mL/min/; POTASSIUM 4.5 MEQ/L (3.7-5.4); SAMPLE HEMOLYSIS CHECK 0; SAMPLE ICTERIC CHECK 0; SAMPLE LIPEMIA CHECK 0; SODIUM 141 MEQ/L (136-147); UREA NITROGEN (BUN) 11 mg/dL (9-23)
[2016-04-14 09:27] LABS: GLUCOSE 101 mg/dL (70-99)
[2016-04-14 09:32] LABS: TROP-I INTERPRETATION INDETERMINATE; TROPONIN-I 0.46 ng/mL (0.0-0.30)
[2016-04-15 04:26] VITALS: BP 174/96; BP 184/107
[2016-04-15 09:40] VITALS: BP 162/85
[2016-04-15 11:30] VITALS: BP 166/104
[2016-04-15 15:41] VITALS: BP 169/96
[2016-04-15 21:00] VITALS: BP 154/76
[2016-04-16] VITALS (7 sets, daily range): BP systolic 143–171; BP diastolic 65–95
[2016-04-16 06:43] LABS: DELETE MACHINE DIFF? YES
[2016-04-16 06:56] LABS: ALKALINE PHOSPHATASE 82 IU/L (3-129); ANION GAP 15 MEQ/L (2-14); CHLORIDE 105 MEQ/L (99-109); GLUCOSE 114 mg/dL (70-99); POTASSIUM 4.1 MEQ/L (3.7-5.4); SAMPLE HEMOLYSIS CHECK 1; SAMPLE ICTERIC CHECK 0; SAMPLE LIPEMIA CHECK 0; SODIUM 136 MEQ/L (136-147); TOTAL BILIRUBIN 0.4 MG/DL (0.0-1.0); UREA NITROGEN (BUN) 11 mg/dL (9-23)
[2016-04-16 07:44] LABS: HEMATOCRIT 39.2 % (38.0-50.0); MCH 27.8 PG (29.0-34.0); MCHC 33.4 G/DL (30.0-36.0); MCV 83.2 FL (86-99); MEAN PLAT.VOLUME 10.5 uM^3 (9.0-12.4); MICROCYTOSIS 1+; PLAT.SUFFICIENCY ADEQUATE; PLATELET COUNT 194 K/uL (156-360); RBC DIS.WIDTH-CV 14.6 % (11.8-14.6); RBC DIS.WIDTH-SD 44.7 % (39-53); RED BLOOD COUNT 4.71 M/uL (4.00-5.50); USER ID STC; WHITE BLOOD COUNT 6.2 K/uL (4.1-10.2)
[2016-04-16 10:36] LABS: GFR ESTIMATE (CALCULATED) ND mL/min/
[2016-04-16 12:52] LABS: GFR ESTIMATE (CALCULATED) > 59 mL/min/
[2016-04-16 17:44] LABS: ADD MIUA? NO; BILIRUBIN NEGATIVE; BLOOD NEGATIVE; COLOR YELLOW ((YELLOW)); GLUCOSE (STRIP) NEGATIVE; KETONES NEGATIVE; LEUKOCYTES NEGATIVE; NITRITE NEGATIVE; PROTEIN (STRIP) NEGATIVE; SPECIFIC GRAVITY 1.016 (1.000-1.030); UCUL ADDED? NO; UROBILINOGEN 0.2 MG/DL (0.2-1.0)
[2016-04-17 04:21] VITALS: BP 123/66
[2016-04-17 06:55] LABS: EOSINOPHIL (%) 1.6 % (0-5); EOSINOPHIL COUNT 0.1 K/uL (0-0.3); IMMATURE GRANULOCYTE (%) 0.2 % (0.0-0.7); LYMPHOCYTE COUNT 1.8 K/uL (1.0-2.8); MCH 27.7 PG (29.0-34.0); MCHC 33.4 G/DL (30.0-36.0); MCV 82.8 FL (86-99); MEAN PLAT.VOLUME 10.5 uM^3 (9.0-12.4); MONOCYTE (%) 7.1 % (3-12); MONOCYTE COUNT 0.4 K/uL (0-0.8); NEUTROPHIL (%) 60.2 % (45-76); NEUTROPHIL COUNT 3.5 K/uL (1.8-6.4); PLATELET COUNT 212 K/uL (156-360); RBC DIS.WIDTH-CV 14.6 % (11.8-14.6); RBC DIS.WIDTH-SD 44.3 % (39-53); RED BLOOD COUNT 4.59 M/uL (4.00-5.50); WHITE BLOOD COUNT 5.8 K/uL (4.1-10.2)
[2016-04-17 07:34] LABS: ALKALINE PHOSPHATASE 72 IU/L (3-129); ANION GAP 8 MEQ/L (2-14); CHLORIDE 103 MEQ/L (99-109); GFR ESTIMATE (CALCULATED) > 59 mL/min/; GLUCOSE 121 mg/dL (70-99); POTASSIUM 3.9 MEQ/L (3.7-5.4); SAMPLE HEMOLYSIS CHECK 0; SAMPLE ICTERIC CHECK 0; SAMPLE LIPEMIA CHECK 0; SODIUM 139 MEQ/L (136-147); TOTAL BILIRUBIN 0.3 MG/DL (0.0-1.0); UREA NITROGEN (BUN) 12 mg/dL (9-23)
[2016-04-17 08:45] VITALS: BP 131/82
[2016-04-17 12:00] VITALS: BP 132/64
[2016-04-17 17:02] LABS: TROP-I INTERPRETATION NEGATIVE; TROPONIN-I 0.21 ng/mL (0.0-0.30)
[2016-04-18 00:36] VITALS: BP 114/60
[2016-04-18 15:00] VITALS: BP 108/71
[2016-04-19 00:26] VITALS: BP 146/91
[2016-04-19 07:56] VITALS: BP 137/74
[2016-04-19 16:20] VITALS: BP 142/63
[2016-04-20 00:16] VITALS: BP 121/71
[2016-04-20 07:47] VITALS: BP 125/74
[2016-04-20 16:20] VITALS: BP 115/61
[2016-04-20 20:50] VITALS: BP 110/60
[2016-04-21] VITALS: BP 115/69
[2016-04-21 07:58] VITALS: BP 133/76
[2016-04-21] MEDS ORDERED: Thiamine,Vitamin B1 PO (08:37)
[2016-04-21] MEDS ORDERED: ASPIR-LOW81 MG PO (08:37)
[2016-04-21] MEDS ORDERED: FOLIC ACID1 MG PO (08:37)
[2016-04-21] MEDS ORDERED: NITROSTAT0.4 MG SL (08:37)
[2016-04-21] MEDS ORDERED: LOPRESSOR25 MG PO (08:37)
[2016-04-21] MEDS ORDERED: ATORVASTATIN CA40 MG PO (08:37)
[2016-04-21] MEDS ORDERED: AMLODIPINE BESY10 MG PO (08:37)
[2016-04-21] MEDS ORDERED: LISINOPRIL40 MG PO (08:37)
[2016-04-21] MEDS ORDERED: IMDUR60 MG PO (08:37)
[2016-04-21] MEDS ORDERED: HYDROCHLOROTHIA25 MG PO (08:37)
== END 2016-04-21 13:00 | DRG 303 ==
LOC: EME 18:22 → 5WEST 22:41 → EDOF 22:41 → 5WEST 23:44 → 5SOUTH 04-17 22:50
PROVIDERS: Family Medicine; Hospitalist; Physician Assistant
DX: I25.110 Atherosclerotic heart disease of native coronary artery with unstable angina pectoris (principal); F14.20 Cocaine dependence, uncomplicated; I50.22 Chronic systolic (congestive) heart failure; F10.20 Alcohol dependence, uncomplicated; Z59.0 Homelessness; F17.210 Nicotine dependence, cigarettes, uncomplicated; Z91.19 Patient's noncompliance with other medical treatment and regimen; E78.5 Hyperlipidemia, unspecified; I25.2 Old myocardial infarction
CPT/HCPCS: 71020; 80048; 80053; 81003; 82565; 84155; 84450; 84460; 84484; 85025; 85027; 93005; 99281; 99284; G0378; G8978 GP CH; G8979 GP CH; G8980 GP CH; J1644; J1650

== ENCOUNTER 2016-08-03 14:42 | Emergency (ER) | payer OTHER ==
[~2016-08-03] VITALS: Ht 165.1 cm; Wt 68.0 kg
[~2016-08-03 14:42] MED LIST changes: +HYDROCHLOROTHIA25 MG PO; +IMDUR60 MG PO; +LISINOPRIL40 MG PO; +NITROSTAT0.4 MG SL
[2016-08-03 15:19] LABS: HEMATOCRIT 37.4 % (38.0-50.0); MCHC 33.7 G/DL (30.0-36.0); MCV 80.1 FL (86-99); MEAN PLAT.VOLUME 10.4 uM^3 (9.0-12.4); PLATELET COUNT 161 K/uL (156-360); RBC DIS.WIDTH-CV 13.7 % (11.8-14.6); RBC DIS.WIDTH-SD 39.3 % (39-53); RED BLOOD COUNT 4.67 M/uL (4.00-5.50)
[2016-08-03 15:27] LABS: CHLORIDE 99 mEq/L (99-109); POTASSIUM 3.6 mEq/L (3.7-5.4); SODIUM 134 mEq/L (136-147)
[2016-08-03 15:29] LABS: CARBON DIOXIDE (BICARBONATE) 24.1 MEQ/L (20-31)
[2016-08-03 15:31] LABS: ANION GAP 16 MEQ/L (2-14)
[2016-08-03 15:32] LABS: GLUCOSE 533 mg/dL (70-99); SERUM ETHYL ALCOHOL 207 mg/dL
[2016-08-03 15:33] LABS: GFR ESTIMATE (CALCULATED) > 59 mL/min/
[2016-08-03 15:34] LABS: UREA NITROGEN (BUN) 5 mg/dL (9-23)
[2016-08-03] MEDS ORDERED: METFORMIN HCL500 MG PO (15:59)
[2016-08-03 16:09] LABS: ADD MIUA? NO; BILIRUBIN NEGATIVE; BLOOD NEGATIVE; COLOR STRAW ((YELLOW)); GLUCOSE (STRIP) >=500; KETONES NEGATIVE; LEUKOCYTES NEGATIVE; NITRITE NEGATIVE; PROTEIN (STRIP) NEGATIVE; SPECIFIC GRAVITY 1.025 (1.000-1.030); UCUL ADDED? NO; UROBILINOGEN 0.2 MG/DL (0.2-1.0)
[2016-08-03 16:17] LABS: AMPHETAMINE NEGATIVE (500 ng/mL); BARBITURATES NEGATIVE (200 ng/mL); BENZODIAZEPINES NEGATIVE (150 ng/mL); COCAINE NEGATIVE (150 ng/mL); INTERNAL CONTROLS VALID? YES; METHADONE NEGATIVE (200 ng/mL); METHAMPHETAMINE NEGATIVE (500 ng/mL); OPIATES (MORPHINE) NEGATIVE (100 ng/mL); OXYCODONE NEGATIVE (100 ng/mL); PHENCYCLIDINE NEGATIVE (25 ng/mL); PROPOXYPHENE NEGATIVE (300 ng/mL); THC CANNABINOIDS NEGATIVE (50 ng/mL); TRICYCLIC ANTIDEPRESSANTS NEGATIVE (300 ng/mL)
[2016-08-03 17:43] LABS: POINT-OF-CARE METER ID UU14100415
[2016-08-03 17:46] VITALS: BP 146/95
[2016-08-04 10:08] LABS: POINT-OF-CARE METER ID UU14100415
== END 2016-08-03 17:47 | disposition home or self-care (01) ==
LOC: EME 14:42
PROVIDERS: Emergency Medicine
DX: F10.10 Alcohol abuse, uncomplicated (principal); E11.65 Type 2 diabetes mellitus with hyperglycemia; I10 Essential (primary) hypertension; Z91.19 Patient's noncompliance with other medical treatment and regimen; Z59.0 Homelessness; Y90.7 Blood alcohol level of 200-239 mg/100 ml; F17.200 Nicotine dependence, unspecified, uncomplicated
CPT/HCPCS: 80048; 81003; 82010; 82803; 82948; 85027; 99281; 99284; G0480; J7030

== ENCOUNTER 2016-08-28 16:58 | Inpatient (IN) | payer OTHER ==
[~2016-08-28] VITALS: Ht 165.1 cm; Wt 68.3 kg
[~2016-08-28 16:58] MED LIST changes: +METFORMIN HCL500 MG PO
[2016-08-28 17:43] LABS: HEMATOCRIT 39.1 % (38.0-50.0); MCH 27.8 PG (29.0-34.0); MCHC 33.5 G/DL (30.0-36.0); MCV 82.8 FL (86-99); MEAN PLAT.VOLUME 9.8 uM^3 (9.0-12.4); PLATELET COUNT 184 K/uL (156-360); RBC DIS.WIDTH-CV 14.4 % (11.8-14.6); RBC DIS.WIDTH-SD 43.4 % (39-53); RED BLOOD COUNT 4.72 M/uL (4.00-5.50); WHITE BLOOD COUNT 7.6 K/uL (4.1-10.2)
[2016-08-28 17:56] LABS: CHLORIDE 97 mEq/L (99-109); POTASSIUM 3.3 mEq/L (3.7-5.4); SODIUM 137 mEq/L (136-147)
[2016-08-28 17:58] LABS: GLUCOSE 370 mg/dL (70-99)
[2016-08-28 17:59] LABS: ANION GAP 16 MEQ/L (2-14)
[2016-08-28 18:01] LABS: GFR ESTIMATE (CALCULATED) > 59 mL/min/; SERUM ETHYL ALCOHOL 248 mg/dL
[2016-08-28 18:02] LABS: UREA NITROGEN (BUN) 12 mg/dL (9-23)
[2016-08-28 18:10] LABS: TROP-I INTERPRETATION INDETERMINATE; TROPONIN-I 0.52 ng/mL (0.0-0.30)
[2016-08-28 19:17] LABS: PROTHROMBIN TIME 9.7 (9.2-11.2); PTT 25.9 (25-32)
[2016-08-28 23:18] VITALS: BP 182/103
[2016-08-28 23:39] LABS: POINT-OF-CARE METER ID UU13113698
[2016-08-29 02:21] LABS: MAGNESIUM 1.6 mg/dL (1.3-2.7)
[2016-08-29 02:35] LABS: TROP-I INTERPRETATION INDETERMINATE; TROPONIN-I 0.55 ng/mL (0.0-0.30)
[2016-08-29 03:04] LABS: AMPHETAMINES QUANT VALUE 0 NG/ML; BARBITUATES QUANT VALUE 0 NG/ML; BENZODIAZEPINES QUANT VALUE 0 NG/ML; BENZODIAZEPINES, URINE SCREEN Negative (200 ng/mL); OPIATES QUANTITATIVE VALUE 0 NG/ML; PHENCYCLIDINE QUANT VALUE 0 NG/ML
[2016-08-29 03:11] VITALS: BP 128/86
[2016-08-29 07:21] VITALS: BP 136/81
[2016-08-29 08:01] LABS: POINT-OF-CARE METER ID UU13113781
[2016-08-29 09:07] LABS: ANION GAP 13 MEQ/L (2-14); CHLORIDE 99 MEQ/L (99-109); GFR ESTIMATE (CALCULATED) > 59 mL/min/; POTASSIUM 3.6 MEQ/L (3.7-5.4); SAMPLE HEMOLYSIS CHECK 0; SAMPLE ICTERIC CHECK 0; SAMPLE LIPEMIA CHECK 0; SODIUM 138 MEQ/L (136-147); UREA NITROGEN (BUN) 9 mg/dL (9-23)
[2016-08-29 09:08] LABS: GLUCOSE 147 mg/dL (70-99)
[2016-08-29 09:17] LABS: TROP-I INTERPRETATION INDETERMINATE; TROPONIN-I 0.52 ng/mL (0.0-0.30)
[2016-08-29 10:58] LABS: Estimated Average Glucose 326 mg/dL (70-123)
[2016-08-29 11:41] VITALS: BP 159/97
[2016-08-29 11:54] LABS: POINT-OF-CARE METER ID UU13113781
[2016-08-29 16:57] LABS: POINT-OF-CARE METER ID UU13113781
[2016-08-29 19:54] VITALS: BP 127/78
[2016-08-29 21:59] LABS: POINT-OF-CARE METER ID UU13113781
[2016-08-29 22:58] VITALS: BP 122/73
[2016-08-30 03:53] VITALS: BP 132/86
[2016-08-30 05:51] LABS: EOSINOPHIL COUNT 0.1 K/uL (0-0.3); HEMATOCRIT 35.6 % (38.0-50.0); IMMATURE GRANULOCYTE (%) 0.3 % (0.0-0.7); INSTRUMENT ABS NEUTROPHIL CT 3.4 K/uL; LYMPHOCYTE COUNT 2.1 K/uL (1.0-2.8); MCH 28.7 PG (29.0-34.0); MCHC 34.6 G/DL (30.0-36.0); MCV 83.2 FL (86-99); MEAN PLAT.VOLUME 10.6 uM^3 (9.0-12.4); MONOCYTE (%) 8.9 % (3-12); MONOCYTE COUNT 0.5 K/uL (0-0.8); NEUTROPHIL (%) 55.5 % (45-76); NEUTROPHIL COUNT 3.4 K/uL (1.8-6.4); PLATELET COUNT 151 K/uL (156-360); RBC DIS.WIDTH-CV 14.4 % (11.8-14.6); RBC DIS.WIDTH-SD 43.3 % (39-53); RED BLOOD COUNT 4.28 M/uL (4.00-5.50); WHITE BLOOD COUNT 6.1 K/uL (4.1-10.2)
[2016-08-30 06:27] LABS: ANION GAP 11 MEQ/L (2-14); CHLORIDE 94 MEQ/L (99-109); GFR ESTIMATE (CALCULATED) > 59 mL/min/; POTASSIUM 3.1 MEQ/L (3.7-5.4); SAMPLE HEMOLYSIS CHECK 0; SAMPLE ICTERIC CHECK 0; SAMPLE LIPEMIA CHECK 0; SODIUM 133 MEQ/L (136-147); UREA NITROGEN (BUN) 14 mg/dL (9-23)
[2016-08-30 06:30] LABS: GLUCOSE 275 mg/dL (70-99)
[2016-08-30 07:22] VITALS: BP 121/63
[2016-08-30 12:33] VITALS: BP 116/70
[2016-08-30 14:06] LABS: GLUCOSE 416 mg/dL (70-99)
[2016-08-30 16:14] VITALS: BP 110/67
[2016-08-30 16:17] LABS: POINT-OF-CARE METER ID UU14174216
[2016-08-30 19:36] VITALS: BP 128/84
[2016-08-30 21:15] LABS: POINT-OF-CARE METER ID UU14174216
[2016-08-30 23:00] VITALS: BP 128/81
[2016-08-31 04:40] VITALS: BP 119/77
[2016-08-31 05:49] LABS: EOSINOPHIL (%) 0.7 % (0-5); HEMATOCRIT 37.2 % (38.0-50.0); IMMATURE GRANULOCYTE (%) 0.5 % (0.0-0.7); INSTRUMENT ABS NEUTROPHIL CT 3.2 K/uL; LYMPHOCYTE COUNT 1.9 K/uL (1.0-2.8); MCH 28.2 PG (29.0-34.0); MCHC 33.6 G/DL (30.0-36.0); MCV 83.8 FL (86-99); MEAN PLAT.VOLUME 10.8 uM^3 (9.0-12.4); MONOCYTE (%) 9.6 % (3-12); MONOCYTE COUNT 0.6 K/uL (0-0.8); NEUTROPHIL (%) 56.5 % (45-76); NEUTROPHIL COUNT 3.2 K/uL (1.8-6.4); PLATELET COUNT 144 K/uL (156-360); RBC DIS.WIDTH-CV 14.6 % (11.8-14.6); RBC DIS.WIDTH-SD 44.4 % (39-53); RED BLOOD COUNT 4.44 M/uL (4.00-5.50); WHITE BLOOD COUNT 5.7 K/uL (4.1-10.2)
[2016-08-31 06:16] LABS: ANION GAP 8 MEQ/L (2-14); CHLORIDE 97 MEQ/L (99-109); GFR ESTIMATE (CALCULATED) > 59 mL/min/; GLUCOSE 272 mg/dL (70-99); POTASSIUM 3.3 MEQ/L (3.7-5.4); SAMPLE HEMOLYSIS CHECK 0; SAMPLE ICTERIC CHECK 0; SAMPLE LIPEMIA CHECK 0; SODIUM 134 MEQ/L (136-147); UREA NITROGEN (BUN) 17 mg/dL (9-23)
[2016-08-31 07:33] LABS: POINT-OF-CARE METER ID UU14174216
[2016-08-31 07:47] VITALS: BP 130/80
[2016-08-31 11:50] VITALS: BP 128/86
[2016-08-31 16:09] VITALS: BP 119/73
[2016-08-31 20:02] VITALS: BP 113/60
[2016-08-31 20:56] LABS: POINT-OF-CARE METER ID UU14174216
[2016-09-01 00:08] VITALS: BP 128/68
[2016-09-01 05:27] VITALS: BP 140/63
[2016-09-01 05:32] LABS: EOSINOPHIL (%) 0.8 % (0-5); EOSINOPHIL COUNT 0.1 K/uL (0-0.3); HEMATOCRIT 36.5 % (38.0-50.0); IMMATURE GRANULOCYTE (%) 0.5 % (0.0-0.7); INSTRUMENT ABS NEUTROPHIL CT 3.5 K/uL; LYMPHOCYTE COUNT 2.1 K/uL (1.0-2.8); MCH 28.2 PG (29.0-34.0); MCHC 33.2 G/DL (30.0-36.0); MCV 85.1 FL (86-99); MEAN PLAT.VOLUME 10.8 uM^3 (9.0-12.4); MONOCYTE (%) 9.5 % (3-12); MONOCYTE COUNT 0.6 K/uL (0-0.8); NEUTROPHIL (%) 56.2 % (45-76); NEUTROPHIL COUNT 3.5 K/uL (1.8-6.4); PLATELET COUNT 150 K/uL (156-360); RBC DIS.WIDTH-CV 14.5 % (11.8-14.6); RBC DIS.WIDTH-SD 44.6 % (39-53); RED BLOOD COUNT 4.29 M/uL (4.00-5.50); WHITE BLOOD COUNT 6.3 K/uL (4.1-10.2)
[2016-09-01 05:52] LABS: ANION GAP 9 MEQ/L (2-14); CHLORIDE 100 MEQ/L (99-109); GFR ESTIMATE (CALCULATED) > 59 mL/min/; GLUCOSE 190 mg/dL (70-99); POTASSIUM 3.6 MEQ/L (3.7-5.4); SAMPLE HEMOLYSIS CHECK 0; SAMPLE ICTERIC CHECK 0; SAMPLE LIPEMIA CHECK 0; SODIUM 136 MEQ/L (136-147); UREA NITROGEN (BUN) 14 mg/dL (9-23)
[2016-09-01 07:48] VITALS: BP 175/88
[2016-09-01] MEDS ORDERED: LEVEMIR100 UNIT/2 SC (08:17)
[2016-09-01] MEDS ORDERED: METFORMIN HCL1000 MG PO (08:17)
[2016-09-01 09:10] LABS: POINT-OF-CARE METER ID UU13113717
[2016-09-01 11:48] VITALS: BP 133/84
[2016-09-01 12:39] LABS: POINT-OF-CARE METER ID UU13113717
== END 2016-09-01 15:08 | disposition home or self-care (01) | DRG 281 ==
LOC: EME 16:58 → 4EAST 21:40 → EDOF 21:40 → 4EAST 23:12 → 5SOUTH 09-01 05:12
PROVIDERS: Emergency Medicine; Hospitalist; Internal Medicine; Physician Assistant
DX: I21.4 Non-ST elevation (NSTEMI) myocardial infarction (principal); E87.1 Hypo-osmolality and hyponatremia; E87.6 Hypokalemia; F10.229 Alcohol dependence with intoxication, unspecified; F10.239 Alcohol dependence with withdrawal, unspecified; Y90.8 Blood alcohol level of 240 mg/100 ml or more; I11.9 Hypertensive heart disease without heart failure; I25.10 Atherosclerotic heart disease of native coronary artery without angina pectoris; I08.0 Rheumatic disorders of both mitral and aortic valves; E78.5 Hyperlipidemia, unspecified; F12.10 Cannabis abuse, uncomplicated; F32.9 Major depressive disorder, single episode, unspecified; E11.65 Type 2 diabetes mellitus with hyperglycemia; K21.9 Gastro-esophageal reflux disease without esophagitis; K29.20 Alcoholic gastritis without bleeding; F17.200 Nicotine dependence, unspecified, uncomplicated; Z59.0 Homelessness; Z91.19 Patient's noncompliance with other medical treatment and regimen
CPT/HCPCS: 71010; 80048; 80306 90; 82948; 83036; 83735; 84100; 84484; 84999; 85025; 85027; 85610; 85730; 93005; 99281; 99285; G0480; J1644; J1815; J7030

== ENCOUNTER 2016-09-03 16:04 | Emergency (ER) | payer OTHER ==
[~2016-09-03] VITALS: Ht 165.1 cm; Wt 73.2 kg
[~2016-09-03 16:04] MED LIST changes: +LEVEMIR100 UNIT/2 SC; +METFORMIN HCL1000 MG PO
[2016-09-03 17:24] VITALS: BP 124/73
== END 2016-09-03 17:41 | disposition home or self-care (01) ==
LOC: EME 16:04
DX: F10.129 Alcohol abuse with intoxication, unspecified (principal); F17.200 Nicotine dependence, unspecified, uncomplicated
CPT/HCPCS: 99281; 99284

== ENCOUNTER 2016-09-07 16:30 | Emergency (ER) | payer OTHER ==
[~2016-09-07] VITALS: Ht 165.1 cm; Wt 67.5 kg
[2016-09-07 20:38] VITALS: BP 130/70
== END 2016-09-07 20:39 | disposition home or self-care (01) ==
LOC: EME 16:30
DX: F10.129 Alcohol abuse with intoxication, unspecified (principal); Y90.6 Blood alcohol level of 120-199 mg/100 ml; F17.200 Nicotine dependence, unspecified, uncomplicated
CPT/HCPCS: 99281; 99285; G0480

== ENCOUNTER 2016-09-09 13:27 | Emergency (ER) | payer OTHER ==
[~2016-09-09] VITALS: Ht 165.1 cm; Wt 62.0 kg
[2016-09-09 16:15] LABS: ADD MIUA? NO; BILIRUBIN NEGATIVE; BLOOD NEGATIVE; COLOR YELLOW ((YELLOW)); GLUCOSE (STRIP) 50; KETONES 5; LEUKOCYTES NEGATIVE; NITRITE NEGATIVE; PROTEIN (STRIP) NEGATIVE; SPECIFIC GRAVITY 1.006 (1.000-1.030); UCUL ADDED? NO; UROBILINOGEN 0.2 MG/DL (0.2-1.0)
[2016-09-09 16:28] LABS: AMPHETAMINE NEGATIVE (500 ng/mL); BARBITURATES NEGATIVE (200 ng/mL); BENZODIAZEPINES NEGATIVE (150 ng/mL); COCAINE NEGATIVE (150 ng/mL); INTERNAL CONTROLS VALID? YES; METHADONE NEGATIVE (200 ng/mL); METHAMPHETAMINE NEGATIVE (500 ng/mL); OPIATES (MORPHINE) NEGATIVE (100 ng/mL); OXYCODONE NEGATIVE (100 ng/mL); PHENCYCLIDINE NEGATIVE (25 ng/mL); PROPOXYPHENE NEGATIVE (300 ng/mL); THC CANNABINOIDS NEGATIVE (50 ng/mL); TRICYCLIC ANTIDEPRESSANTS NEGATIVE (300 ng/mL)
[2016-09-09 17:42] LABS: HEMATOCRIT 37.8 % (38.0-50.0); MCH 27.9 PG (29.0-34.0); MCHC 32.8 G/DL (30.0-36.0); MCV 84.9 FL (86-99); MEAN PLAT.VOLUME 9.4 uM^3 (9.0-12.4); RBC DIS.WIDTH-CV 14.6 % (11.8-14.6); RBC DIS.WIDTH-SD 45.1 % (39-53); RED BLOOD COUNT 4.45 M/uL (4.00-5.50); WHITE BLOOD COUNT 7.7 K/uL (4.1-10.2)
[2016-09-09 17:51] LABS: CHLORIDE 106 mEq/L (99-109); POTASSIUM 3.4 mEq/L (3.7-5.4); SODIUM 143 mEq/L (136-147)
[2016-09-09 17:54] LABS: GLUCOSE 236 mg/dL (70-99)
[2016-09-09 17:55] LABS: ANION GAP 13 MEQ/L (2-14); TOTAL BILIRUBIN 0.2 mg/dL (0.0-1.0)
[2016-09-09 17:56] LABS: SERUM ETHYL ALCOHOL 187 mg/dL
[2016-09-09 17:57] LABS: ALKALINE PHOSPHATASE 84 IU/L (3-129); GFR ESTIMATE (CALCULATED) > 59 mL/min/
[2016-09-09 17:58] LABS: UREA NITROGEN (BUN) 19 mg/dL (9-23)
[2016-09-09 18:24] VITALS: BP 122/80
[2016-09-09 18:28] LABS: PLATELET COUNT 243 K/uL (156-360)
== END 2016-09-09 20:43 | disposition home or self-care (01) ==
LOC: EME 13:27
PROVIDERS: Physician Assistant
DX: M54.5 Low back pain (principal); F10.129 Alcohol abuse with intoxication, unspecified; F17.200 Nicotine dependence, unspecified, uncomplicated
CPT/HCPCS: 80053; 81003; 85027; 99281; 99284; G0480; J7030

== ENCOUNTER 2016-09-10 09:44 | Emergency (ER) | payer OTHER ==
[~2016-09-10] VITALS: Ht 165.1 cm; Wt 68.1 kg
[2016-09-10 10:55] LABS: EOSINOPHIL (%) 1.3 % (0-5); EOSINOPHIL COUNT 0.1 K/uL (0-0.3); IMMATURE GRANULOCYTE (%) 0.1 % (0.0-0.7); INSTRUMENT ABS NEUTROPHIL CT 4.1 K/uL; LYMPHOCYTE COUNT 2.1 K/uL (1.0-2.8); MCH 28.2 PG (29.0-34.0); MCHC 33.1 G/DL (30.0-36.0); MCV 85.3 FL (86-99); MEAN PLAT.VOLUME 9.7 uM^3 (9.0-12.4); MONOCYTE (%) 5.6 % (3-12); MONOCYTE COUNT 0.4 K/uL (0-0.8); NEUTROPHIL (%) 61.5 % (45-76); NEUTROPHIL COUNT 4.1 K/uL (1.8-6.4); PLATELET COUNT 223 K/uL (156-360); RBC DIS.WIDTH-CV 14.7 % (11.8-14.6); RBC DIS.WIDTH-SD 45.7 % (39-53); RED BLOOD COUNT 4.22 M/uL (4.00-5.50); WHITE BLOOD COUNT 6.7 K/uL (4.1-10.2)
[2016-09-10 11:04] LABS: CHLORIDE 113 mEq/L (99-109); POTASSIUM 3.6 mEq/L (3.7-5.4); SODIUM 146 mEq/L (136-147)
[2016-09-10 11:05] LABS: GLUCOSE 204 mg/dL (70-99)
[2016-09-10 11:07] LABS: ANION GAP 14 MEQ/L (2-14)
[2016-09-10 11:09] LABS: GFR ESTIMATE (CALCULATED) > 59 mL/min/; SERUM ETHYL ALCOHOL 273 mg/dL
[2016-09-10 11:10] LABS: UREA NITROGEN (BUN) 18 mg/dL (9-23)
[2016-09-10 14:06] VITALS: BP 128/71
== END 2016-09-10 14:06 | disposition home or self-care (01) ==
LOC: EME 09:44
PROVIDERS: Emergency Medicine
DX: F10.129 Alcohol abuse with intoxication, unspecified (principal); I10 Essential (primary) hypertension; Y90.8 Blood alcohol level of 240 mg/100 ml or more; Z59.0 Homelessness; Z79.82 Long term (current) use of aspirin; Z79.899 Other long term (current) drug therapy; F17.200 Nicotine dependence, unspecified, uncomplicated
CPT/HCPCS: 70450; 80048; 81003; 85025; 99281; 99283; G0480

== ENCOUNTER 2016-09-10 19:55 | Inpatient (IN) | payer OTHER ==
[~2016-09-10] VITALS: Ht 165.1 cm; Wt 69.0 kg
[2016-09-10 21:19] LABS: HEMATOCRIT 37.2 % (38.0-50.0); MCH 28.1 PG (29.0-34.0); MCHC 33.3 G/DL (30.0-36.0); MCV 84.4 FL (86-99); MEAN PLAT.VOLUME 9.4 uM^3 (9.0-12.4); PLATELET COUNT 212 K/uL (156-360); RBC DIS.WIDTH-CV 14.6 % (11.8-14.6); RBC DIS.WIDTH-SD 45.2 % (39-53); RED BLOOD COUNT 4.41 M/uL (4.00-5.50); WHITE BLOOD COUNT 6.7 K/uL (4.1-10.2)
[2016-09-10 21:37] LABS: CHLORIDE 110 mEq/L (99-109); POTASSIUM 3.7 mEq/L (3.7-5.4); SODIUM 146 mEq/L (136-147)
[2016-09-10 21:39] LABS: GLUCOSE 230 mg/dL (70-99)
[2016-09-10 21:41] LABS: ANION GAP 11 MEQ/L (2-14)
[2016-09-10 21:43] LABS: GFR ESTIMATE (CALCULATED) > 59 mL/min/
[2016-09-10 21:44] LABS: UREA NITROGEN (BUN) 11 mg/dL (9-23)
[2016-09-10 22:04] LABS: TROP-I INTERPRETATION INDETERMINATE; TROPONIN-I 0.58 ng/mL (0.0-0.30)
[2016-09-10 22:14] LABS: SERUM ETHYL ALCOHOL 260 mg/dL
[2016-09-11 00:23] LABS: PTT 26.8 (25-32)
[2016-09-11 01:48] LABS: INTER. NORMALIZED RATIO 1.1; PROTHROMBIN TIME 10.7 (9.2-11.2)
[2016-09-11 02:22] LABS: PTT > 150.0 (25-32)
[2016-09-11 05:39] LABS: TROP-I INTERPRETATION POSITIVE; TROPONIN-I 0.62 ng/mL (0.0-0.30)
[2016-09-11 07:10] LABS: HEMATOCRIT 35.1 % (38.0-50.0); MCH 28.4 PG (29.0-34.0); MCHC 34.2 G/DL (30.0-36.0); MCV 83.2 FL (86-99); MEAN PLAT.VOLUME 9.6 uM^3 (9.0-12.4); PLATELET COUNT 209 K/uL (156-360); RBC DIS.WIDTH-CV 14.6 % (11.8-14.6); RBC DIS.WIDTH-SD 44.3 % (39-53); RED BLOOD COUNT 4.22 M/uL (4.00-5.50); WHITE BLOOD COUNT 6.8 K/uL (4.1-10.2)
[2016-09-11 09:59] LABS: TROP-I INTERPRETATION POSITIVE; TROPONIN-I 0.67 ng/mL (0.0-0.30)
[2016-09-11 11:52] LABS: POINT-OF-CARE METER ID UU14100415
[2016-09-11 15:30] VITALS: BP 170/104
[2016-09-11 16:54] VITALS: BP 188/100
[2016-09-11 18:13] LABS: Estimated Average Glucose 306 mg/dL (70-123); HEMOGLOBIN A1c (GLYCOHEMOGLOB) 12.3 % HGB (Below 5.7)
[2016-09-11 20:00] VITALS: BP 177/101
[2016-09-11 23:30] VITALS: BP 166/89; BP 177/101
[2016-09-12 03:20] VITALS: BP 184/100
[2016-09-12 07:28] LABS: MCH 28.5 PG (29.0-34.0); MCV 83.7 FL (86-99); MEAN PLAT.VOLUME 9.8 uM^3 (9.0-12.4); PLATELET COUNT 181 K/uL (156-360); RBC DIS.WIDTH-CV 14.5 % (11.8-14.6); RBC DIS.WIDTH-SD 43.8 % (39-53); RED BLOOD COUNT 4.18 M/uL (4.00-5.50); WHITE BLOOD COUNT 7.2 K/uL (4.1-10.2)
[2016-09-12 07:36] LABS: POINT-OF-CARE METER ID UU13113698
[2016-09-12 07:55] LABS: ALKALINE PHOSPHATASE 83 IU/L (3-129); ANION GAP 11 MEQ/L (2-14); CHLORIDE 102 MEQ/L (99-109); GFR ESTIMATE (CALCULATED) > 59 mL/min/; GLUCOSE 138 mg/dL (70-99); SAMPLE HEMOLYSIS CHECK 0; SAMPLE ICTERIC CHECK 0; SAMPLE LIPEMIA CHECK 0; TOTAL BILIRUBIN 0.6 MG/DL (0.0-1.0); UREA NITROGEN (BUN) 6 mg/dL (9-23)
[2016-09-12 07:58] VITALS: BP 162/91
[2016-09-12 08:06] LABS: TROP-I INTERPRETATION INDETERMINATE; TROPONIN-I 0.53 ng/mL (0.0-0.30)
[2016-09-12 08:07] LABS: SODIUM 135 MEQ/L (136-147)
[2016-09-12 11:29] LABS: POINT-OF-CARE METER ID UU13113781
[2016-09-12 11:38] VITALS: BP 158/91
== END 2016-09-12 15:15 | disposition left against medical advice (07) | DRG 305 ==
LOC: EME → EDBD 19:55 → EME 19:55 → EDOF 23:58 → 4EAST 09-11 15:18
PROVIDERS: Emergency Medicine; Hospitalist; Internal Medicine; Internal Medicine Cardiovascular Disease
DX: I11.9 Hypertensive heart disease without heart failure (principal); E11.65 Type 2 diabetes mellitus with hyperglycemia; R07.89 Other chest pain; F10.229 Alcohol dependence with intoxication, unspecified; F17.200 Nicotine dependence, unspecified, uncomplicated; I25.10 Atherosclerotic heart disease of native coronary artery without angina pectoris; E78.5 Hyperlipidemia, unspecified; Z59.0 Homelessness; Z91.19 Patient's noncompliance with other medical treatment and regimen; Z79.84 Long term (current) use of oral hypoglycemic drugs
CPT/HCPCS: 71020; 80048 91; 80053; 82948; 83036; 84484; 85027; 85610; 85730; 93005; 99281; 99285; G0480; J0360; J1644; J1815; J2060; J2270; J3411; J3475; J7030

== ENCOUNTER 2016-09-12 21:43 | Emergency (ER) | payer OTHER ==
[~2016-09-12] VITALS: Ht 165.1 cm; Wt 71.8 kg
[2016-09-12 22:16] LABS: AMPHETAMINE NEGATIVE (500 ng/mL); BARBITURATES NEGATIVE (200 ng/mL); BENZODIAZEPINES PRESUMPTIVE POSITIVE (150 ng/mL); COCAINE NEGATIVE (150 ng/mL); INTERNAL CONTROLS VALID? YES; METHADONE NEGATIVE (200 ng/mL); METHAMPHETAMINE NEGATIVE (500 ng/mL); OPIATES (MORPHINE) NEGATIVE (100 ng/mL); OXYCODONE NEGATIVE (100 ng/mL); PHENCYCLIDINE NEGATIVE (25 ng/mL); PROPOXYPHENE NEGATIVE (300 ng/mL); THC CANNABINOIDS PRESUMPTIVE POSITIVE (50 ng/mL); TRICYCLIC ANTIDEPRESSANTS NEGATIVE (300 ng/mL)
[2016-09-12 22:17] LABS: ADD MEDTOX COMMENT Y
[2016-09-12 22:48] VITALS: BP 00/0
[2016-09-12 23:01] LABS: BENZODIAZEPINES QUANT VALUE 0 NG/ML; BENZODIAZEPINES, URINE SCREEN Negative (200 ng/mL)
== END 2016-09-12 22:51 | disposition left against medical advice (07) ==
LOC: EME 21:43
PROVIDERS: Emergency Medicine
DX: R07.9 Chest pain, unspecified (principal); F10.129 Alcohol abuse with intoxication, unspecified; F17.200 Nicotine dependence, unspecified, uncomplicated
CPT/HCPCS: 71020; 80048; 84484; 84999; 85027; 93005; 99281; 99284; G0480

== ENCOUNTER 2016-09-16 21:38 | Emergency (ER) | payer OTHER ==
[~2016-09-16] VITALS: Ht 165.1 cm; Wt 65.6 kg
[2016-09-16 23:23] VITALS: BP 138/87
== END 2016-09-16 23:24 | disposition home or self-care (01) ==
LOC: EME 21:38 → EXP 21:38
PROC: 0JCJ0ZZ Extirpation of Matter from Right Hand Subcutaneous Tissue and Fascia, Open Approach (ICD-10-PCS; principal; 2016-09-16)
DX: S61.421A Laceration with foreign body of right hand, initial encounter (principal); F10.129 Alcohol abuse with intoxication, unspecified; W19.XXXA Unspecified fall, initial encounter
CPT/HCPCS: 73130; 99281; 99283

== ENCOUNTER 2016-09-17 11:48 | Emergency (ER) | payer OTHER ==
[~2016-09-17] VITALS: Ht 165.1 cm; Wt 77.2 kg
[2016-09-17 12:22] VITALS: BP 161/94
== END 2016-09-17 12:22 | disposition home or self-care (01) ==
LOC: EME 11:48
DX: S60.522A Blister (nonthermal) of left hand, initial encounter (principal); F10.129 Alcohol abuse with intoxication, unspecified; W19.XXXA Unspecified fall, initial encounter; Y92.410 Unspecified street and highway as the place of occurrence of the external cause
CPT/HCPCS: 99281; 99282

== ENCOUNTER 2016-09-17 21:42 | Emergency (ER) | payer OTHER ==
[~2016-09-17] VITALS: Ht 172.7 cm; Wt 77.0 kg
[2016-09-18 03:50] VITALS: BP 116/77
== END 2016-09-18 03:51 | disposition home or self-care (01) ==
LOC: EME → EDBD 21:42 → EME 21:42
DX: F10.129 Alcohol abuse with intoxication, unspecified (principal); I10 Essential (primary) hypertension; F32.9 Major depressive disorder, single episode, unspecified; F17.200 Nicotine dependence, unspecified, uncomplicated
CPT/HCPCS: 99281; 99283

== ENCOUNTER 2016-09-18 12:06 | Emergency (ER) | payer OTHER ==
[~2016-09-18] VITALS: Ht 170.2 cm; Wt 66.9 kg
[2016-09-18 12:51] LABS: EOSINOPHIL (%) 1.1 % (0-5); EOSINOPHIL COUNT 0.1 K/uL (0-0.3); HEMATOCRIT 36.9 % (38.0-50.0); IMMATURE GRANULOCYTE (%) 0.3 % (0.0-0.7); INSTRUMENT ABS NEUTROPHIL CT 3.7 K/uL; LYMPHOCYTE COUNT 2.1 K/uL (1.0-2.8); MCH 28.1 PG (29.0-34.0); MCHC 32.8 G/DL (30.0-36.0); MCV 85.6 FL (86-99); MEAN PLAT.VOLUME 9.5 uM^3 (9.0-12.4); MONOCYTE (%) 5.1 % (3-12); MONOCYTE COUNT 0.3 K/uL (0-0.8); NEUTROPHIL COUNT 3.7 K/uL (1.8-6.4); PLATELET COUNT 165 K/uL (156-360); RBC DIS.WIDTH-CV 15.6 % (11.8-14.6); RBC DIS.WIDTH-SD 49.1 % (39-53); RED BLOOD COUNT 4.31 M/uL (4.00-5.50); WHITE BLOOD COUNT 6.2 K/uL (4.1-10.2)
[2016-09-18 12:57] LABS: PROTHROMBIN TIME 10.1 (9.2-11.2)
[2016-09-18 12:59] LABS: CHLORIDE 109 mEq/L (99-109); POTASSIUM 3.6 mEq/L (3.7-5.4)
[2016-09-18 13:01] LABS: GLUCOSE 120 mg/dL (70-99)
[2016-09-18 13:02] LABS: ANION GAP 15 MEQ/L (2-14); SODIUM 147 mEq/L (136-147)
[2016-09-18 13:05] LABS: GFR ESTIMATE (CALCULATED) > 59 mL/min/
[2016-09-18 13:06] LABS: UREA NITROGEN (BUN) 11 mg/dL (9-23)
[2016-09-18 13:11] LABS: TROP-I INTERPRETATION POSITIVE; TROPONIN-I 0.66 ng/mL (0.0-0.30)
[2016-09-18 17:04] VITALS: BP 142/81
== END 2016-09-18 17:16 | disposition home or self-care (01) ==
LOC: EME 12:06
PROVIDERS: Emergency Medicine
DX: F10.129 Alcohol abuse with intoxication, unspecified (principal); R07.9 Chest pain, unspecified; F17.200 Nicotine dependence, unspecified, uncomplicated; Z87.442 Personal history of urinary calculi
CPT/HCPCS: 71020; 80048; 83880; 84484; 85025; 85610; 93005; 99281; 99284

== ENCOUNTER 2016-09-19 11:30 | Inpatient (IN) | payer OTHER ==
[~2016-09-19] VITALS: Ht 165.1 cm; Wt 64.4 kg
[2016-09-19 12:12] LABS: HEMATOCRIT 36.6 % (38.0-50.0); MCHC 32.8 G/DL (30.0-36.0); MCV 85.5 FL (86-99); MEAN PLAT.VOLUME 9.7 uM^3 (9.0-12.4); PLATELET COUNT 162 K/uL (156-360); RBC DIS.WIDTH-CV 15.7 % (11.8-14.6); RED BLOOD COUNT 4.28 M/uL (4.00-5.50); WHITE BLOOD COUNT 5.5 K/uL (4.1-10.2)
[2016-09-19 12:23] LABS: CHLORIDE 108 mEq/L (99-109); POTASSIUM 3.6 mEq/L (3.7-5.4); SODIUM 147 mEq/L (136-147)
[2016-09-19 12:24] LABS: GLUCOSE 139 mg/dL (70-99)
[2016-09-19 12:26] LABS: ANION GAP 15 MEQ/L (2-14)
[2016-09-19 12:28] LABS: GFR ESTIMATE (CALCULATED) > 59 mL/min/
[2016-09-19 12:29] LABS: UREA NITROGEN (BUN) 12 mg/dL (9-23)
[2016-09-19 12:36] LABS: TROP-I INTERPRETATION POSITIVE; TROPONIN-I 0.79 ng/mL (0.0-0.30)
[2016-09-19 14:17] LABS: SERUM ETHYL ALCOHOL 259 mg/dL
[2016-09-19 14:30] VITALS: BP 162/98
[2016-09-19 15:25] LABS: MAGNESIUM 1.7 mg/dL (1.3-2.7)
[2016-09-19 15:29] LABS: ADD MEDTOX COMMENT Y; AMPHETAMINE NEGATIVE (500 ng/mL); BARBITURATES NEGATIVE (200 ng/mL); BENZODIAZEPINES PRESUMPTIVE POSITIVE (150 ng/mL); COCAINE NEGATIVE (150 ng/mL); INTERNAL CONTROLS VALID? YES; METHADONE NEGATIVE (200 ng/mL); METHAMPHETAMINE NEGATIVE (500 ng/mL); OPIATES (MORPHINE) NEGATIVE (100 ng/mL); OXYCODONE NEGATIVE (100 ng/mL); PHENCYCLIDINE NEGATIVE (25 ng/mL); PROPOXYPHENE NEGATIVE (300 ng/mL); THC CANNABINOIDS PRESUMPTIVE POSITIVE (50 ng/mL); TRICYCLIC ANTIDEPRESSANTS NEGATIVE (300 ng/mL)
[2016-09-19 15:44] LABS: MCH 28.1 PG (29.0-34.0); MCHC 33.1 G/DL (30.0-36.0); MCV 84.9 FL (86-99); MEAN PLAT.VOLUME 9.6 uM^3 (9.0-12.4); PLATELET COUNT 158 K/uL (156-360); RBC DIS.WIDTH-CV 15.5 % (11.8-14.6); RED BLOOD COUNT 4.24 M/uL (4.00-5.50); WHITE BLOOD COUNT 5.8 K/uL (4.1-10.2)
[2016-09-19 16:02] LABS: BENZODIAZEPINES, URINE SCREEN POSITIVE (200 ng/mL)
== END 2016-09-19 16:09 | disposition left against medical advice (07) | DRG 281 ==
LOC: EME 11:30 → EDOF 14:52
PROVIDERS: Emergency Medicine; Hospitalist
DX: I21.4 Non-ST elevation (NSTEMI) myocardial infarction (principal); I50.22 Chronic systolic (congestive) heart failure; I11.0 Hypertensive heart disease with heart failure; I25.82 Chronic total occlusion of coronary artery; E78.5 Hyperlipidemia, unspecified; F10.229 Alcohol dependence with intoxication, unspecified; F17.200 Nicotine dependence, unspecified, uncomplicated; I25.10 Atherosclerotic heart disease of native coronary artery without angina pectoris; I25.5 Ischemic cardiomyopathy; Z59.0 Homelessness; Z87.442 Personal history of urinary calculi; Z91.19 Patient's noncompliance with other medical treatment and regimen; H11.30 Conjunctival hemorrhage, unspecified eye; Y90.8 Blood alcohol level of 240 mg/100 ml or more
CPT/HCPCS: 71020; 80048; 83735; 84484; 84999; 85027; 93005; 99281; 99284; G0480; J7030

== ENCOUNTER 2016-09-19 17:48 | Inpatient (IN) | payer OTHER ==
[~2016-09-19] VITALS: Ht 165.1 cm; Wt 66.0 kg
[2016-09-19 19:41] LABS: HEMATOCRIT 37.5 % (38.0-50.0); MCH 28.3 PG (29.0-34.0); MCHC 33.3 G/DL (30.0-36.0); MCV 84.8 FL (86-99); MEAN PLAT.VOLUME 9.1 uM^3 (9.0-12.4); PLATELET COUNT 158 K/uL (156-360); RBC DIS.WIDTH-CV 15.4 % (11.8-14.6); RBC DIS.WIDTH-SD 48.3 % (39-53); RED BLOOD COUNT 4.42 M/uL (4.00-5.50); WHITE BLOOD COUNT 6.9 K/uL (4.1-10.2)
[2016-09-19 19:56] LABS: CHLORIDE 105 mEq/L (99-109); POTASSIUM 3.3 mEq/L (3.7-5.4); SODIUM 144 mEq/L (136-147)
[2016-09-19 19:58] LABS: GLUCOSE 127 mg/dL (70-99)
[2016-09-19 19:59] LABS: ANION GAP 15 MEQ/L (2-14)
[2016-09-19 20:02] LABS: GFR ESTIMATE (CALCULATED) > 59 mL/min/
[2016-09-19 20:03] LABS: UREA NITROGEN (BUN) 11 mg/dL (9-23)
[2016-09-19 20:10] LABS: TROP-I INTERPRETATION POSITIVE; TROPONIN-I 0.78 ng/mL (0.0-0.30)
[2016-09-19 22:45] VITALS: BP 178/92
[2016-09-19 23:12] LABS: HEMATOCRIT 37.5 % (38.0-50.0); MCH 28.4 PG (29.0-34.0); MCHC 33.3 G/DL (30.0-36.0); MCV 85.2 FL (86-99); MEAN PLAT.VOLUME 9.6 uM^3 (9.0-12.4); PLATELET COUNT 153 K/uL (156-360); RBC DIS.WIDTH-CV 15.4 % (11.8-14.6); RBC DIS.WIDTH-SD 48.3 % (39-53)
[2016-09-19 23:21] LABS: CHLORIDE 105 mEq/L (99-109); POTASSIUM 3.4 mEq/L (3.7-5.4); SODIUM 143 mEq/L (136-147)
[2016-09-19 23:22] LABS: MAGNESIUM 1.6 mg/dL (1.3-2.7)
[2016-09-19 23:24] LABS: GLUCOSE 145 mg/dL (70-99)
[2016-09-19 23:25] LABS: ANION GAP 16 MEQ/L (2-14)
[2016-09-19 23:26] LABS: TOTAL BILIRUBIN 0.3 mg/dL (0.0-1.0)
[2016-09-19 23:27] LABS: ALKALINE PHOSPHATASE 96 IU/L (3-129)
[2016-09-19 23:28] LABS: GFR ESTIMATE (CALCULATED) > 59 mL/min/
[2016-09-19 23:29] LABS: UREA NITROGEN (BUN) 10 mg/dL (9-23)
[2016-09-20] VITALS (8 sets, daily range): BP systolic 152–183; BP diastolic 90–104
[2016-09-20 00:38] LABS: TROP-I INTERPRETATION POSITIVE; TROPONIN-I 0.81 ng/mL (0.0-0.30)
[2016-09-20 05:39] LABS: TROP-I INTERPRETATION POSITIVE; TROPONIN-I 0.77 ng/mL (0.0-0.30)
[2016-09-20 08:53] LABS: EOSINOPHIL (%) 1.5 % (0-5); EOSINOPHIL COUNT 0.1 K/uL (0-0.3); HEMATOCRIT 39.4 % (38.0-50.0); IMMATURE GRANULOCYTE (%) 0.3 % (0.0-0.7); INSTRUMENT ABS NEUTROPHIL CT 4.5 K/uL; LYMPHOCYTE COUNT 1.5 K/uL (1.0-2.8); MCH 27.6 PG (29.0-34.0); MCHC 32.7 G/DL (30.0-36.0); MCV 84.2 FL (86-99); MEAN PLAT.VOLUME 9.4 uM^3 (9.0-12.4); MONOCYTE (%) 6.3 % (3-12); MONOCYTE COUNT 0.4 K/uL (0-0.8); NEUTROPHIL (%) 68.7 % (45-76); NEUTROPHIL COUNT 4.5 K/uL (1.8-6.4); PLATELET COUNT 170 K/uL (156-360); RBC DIS.WIDTH-CV 15.3 % (11.8-14.6); RED BLOOD COUNT 4.68 M/uL (4.00-5.50); WHITE BLOOD COUNT 6.5 K/uL (4.1-10.2)
[2016-09-20 09:13] LABS: ANION GAP 12 MEQ/L (2-14); CHLORIDE 103 MEQ/L (99-109); POTASSIUM 3.8 MEQ/L (3.7-5.4); SAMPLE HEMOLYSIS CHECK 0; SAMPLE ICTERIC CHECK 0; SAMPLE LIPEMIA CHECK 0; SODIUM 139 MEQ/L (136-147)
[2016-09-20 09:19] LABS: GFR ESTIMATE (CALCULATED) > 59 mL/min/; GLUCOSE 135 mg/dL (70-99); UREA NITROGEN (BUN) 8 mg/dL (9-23)
[2016-09-21 04:25] LABS: EOSINOPHIL (%) 2.2 % (0-5); EOSINOPHIL COUNT 0.1 K/uL (0-0.3); HEMATOCRIT 38.9 % (38.0-50.0); IMMATURE GRANULOCYTE (%) 0.3 % (0.0-0.7); INSTRUMENT ABS NEUTROPHIL CT 3.5 K/uL; MCH 28.2 PG (29.0-34.0); MCHC 33.9 G/DL (30.0-36.0); MCV 83.1 FL (86-99); MEAN PLAT.VOLUME 9.4 uM^3 (9.0-12.4); MONOCYTE (%) 5.4 % (3-12); MONOCYTE COUNT 0.3 K/uL (0-0.8); NEUTROPHIL (%) 58.7 % (45-76); NEUTROPHIL COUNT 3.5 K/uL (1.8-6.4); PLATELET COUNT 150 K/uL (156-360); RBC DIS.WIDTH-CV 14.7 % (11.8-14.6); RBC DIS.WIDTH-SD 44.5 % (39-53); RED BLOOD COUNT 4.68 M/uL (4.00-5.50)
[2016-09-21 04:39] VITALS: BP 132/79
[2016-09-21 04:42] LABS: CHLORIDE 101 mEq/L (99-109); POTASSIUM 3.1 mEq/L (3.7-5.4); SODIUM 136 mEq/L (136-147)
[2016-09-21 04:43] LABS: GLUCOSE 185 mg/dL (70-99)
[2016-09-21 04:45] LABS: ANION GAP 11 MEQ/L (2-14)
[2016-09-21 04:47] LABS: GFR ESTIMATE (CALCULATED) > 59 mL/min/
[2016-09-21 04:48] LABS: UREA NITROGEN (BUN) 11 mg/dL (9-23)
[2016-09-21 06:54] VITALS: BP 154/85
[2016-09-21 09:04] LABS: MAGNESIUM 1.6 mg/dL (1.3-2.7)
[2016-09-21 10:46] VITALS: BP 138/77
== END 2016-09-21 14:26 | disposition left against medical advice (07) | DRG 281 ==
LOC: EME 17:48 → EDOF 21:04 → 4EAST 21:04
PROVIDERS: Emergency Medicine; Hospitalist; Student in an Organized Health Care Education/Training Program
DX: I21.4 Non-ST elevation (NSTEMI) myocardial infarction (principal); F10.229 Alcohol dependence with intoxication, unspecified; E87.6 Hypokalemia; I11.0 Hypertensive heart disease with heart failure; I50.22 Chronic systolic (congestive) heart failure; I25.82 Chronic total occlusion of coronary artery; I25.5 Ischemic cardiomyopathy; Z91.19 Patient's noncompliance with other medical treatment and regimen; Z59.0 Homelessness; I25.10 Atherosclerotic heart disease of native coronary artery without angina pectoris; E78.5 Hyperlipidemia, unspecified; I35.0 Nonrheumatic aortic (valve) stenosis; F32.9 Major depressive disorder, single episode, unspecified; F17.200 Nicotine dependence, unspecified, uncomplicated
CPT/HCPCS: 80048; 80048 91; 80053; 83735; 83880; 84484; 85025; 85027; 93005; 99281; 99285; J1650; J2270; J3411; J7030

== ENCOUNTER 2016-09-23 19:54 | Observation (INO) | payer OTHER ==
[~2016-09-23] VITALS: Ht 165.1 cm; Wt 77.2 kg
[~2016-09-23 19:54] MED LIST changes: -ZESTORETIC 20-1 EAC1 PO
[2016-09-24 02:43] LABS: HEMATOCRIT 39.6 % (38.0-50.0); MCH 28.5 PG (29.0-34.0); MCHC 33.1 G/DL (30.0-36.0); MCV 86.1 FL (86-99); MEAN PLAT.VOLUME 9.8 uM^3 (9.0-12.4); PLATELET COUNT 152 K/uL (156-360); RBC DIS.WIDTH-CV 15.5 % (11.8-14.6); WHITE BLOOD COUNT 6.2 K/uL (4.1-10.2)
[2016-09-24 02:53] LABS: CHLORIDE 103 mEq/L (99-109); POTASSIUM 3.6 mEq/L (3.7-5.4); SODIUM 139 mEq/L (136-147)
[2016-09-24 02:55] LABS: GLUCOSE 159 mg/dL (70-99)
[2016-09-24 02:56] LABS: ANION GAP 13 MEQ/L (2-14)
[2016-09-24 02:58] LABS: GFR ESTIMATE (CALCULATED) > 59 mL/min/
[2016-09-24 02:59] LABS: UREA NITROGEN (BUN) 13 mg/dL (9-23)
[2016-09-24 03:07] LABS: TROP-I INTERPRETATION INDETERMINATE; TROPONIN-I 0.53 ng/mL (0.0-0.30)
[2016-09-24 03:33] LABS: ALKALINE PHOSPHATASE 107 IU/L (3-129); SERUM ETHYL ALCOHOL 18 mg/dL
[2016-09-24 03:36] LABS: DIRECT BILIRUBIN 0.1 mg/dL (0.0-0.3); TOTAL BILIRUBIN 0.2 mg/dL (0.0-1.0)
[2016-09-24 03:37] LABS: LIPASE 45 U/L (1.0-51.0)
[2016-09-24 09:12] LABS: TROP-I INTERPRETATION INDETERMINATE; TROPONIN-I 0.48 ng/mL (0.0-0.30)
[2016-09-24] MEDS ORDERED: ZESTORETIC 20-1 EAC1 PO (10:59)
[2016-09-24] MEDS ORDERED: METFORMIN HCL1000 MG PO (10:59)
[2016-09-24] MEDS ORDERED: ATORVASTATIN CA40 MG PO (10:59)
[2016-09-24] MEDS ORDERED: IMDUR60 MG PO (10:59)
[2016-09-24] MEDS ORDERED: METOPROLOL SUCC50 MG PO (10:59)
[2016-09-24] MEDS ORDERED: ASPIR-LOW81 MG PO (10:59)
[2016-09-24 11:15] VITALS: BP 134/81
[2016-09-24 15:42] LABS: TROP-I INTERPRETATION INDETERMINATE; TROPONIN-I 0.46 ng/mL (0.0-0.30)
== END 2016-09-24 15:49 | disposition home or self-care (01) ==
LOC: EXP 19:54 → EME 19:54 → 5WEST 09-24 07:25 → EDOF 09-24 07:25 → 5WEST 09-24 08:53
PROVIDERS: Emergency Medicine; Hospitalist; Nurse Practitioner Adult Health
DX: R07.9 Chest pain, unspecified (principal); I25.10 Atherosclerotic heart disease of native coronary artery without angina pectoris; I11.9 Hypertensive heart disease without heart failure; F17.200 Nicotine dependence, unspecified, uncomplicated; Z59.0 Homelessness; F10.129 Alcohol abuse with intoxication, unspecified; R79.89 Other specified abnormal findings of blood chemistry; M79.601 Pain in right arm; G89.29 Other chronic pain; M79.606 Pain in leg, unspecified; Z91.120 Patient's intentional underdosing of medication regimen due to financial hardship; Z91.19 Patient's noncompliance with other medical treatment and regimen; Z91.81 History of falling; Z87.898 Personal history of other specified conditions; Z87.442 Personal history of urinary calculi
CPT/HCPCS: 71020; 73090; 80048; 80076; 82948; 83690; 83880; 84484; 85027; 93005; 99281; 99285; G0378; G0480

== ENCOUNTER → 2016-09-23 | Emergency (ER) | payer OTHER ==
[~2016-09-23] VITALS: Ht 165.1 cm; Wt 66.0 kg
[~2016-09-23] MED LIST changes: +ZESTORETIC 20-1 EAC1 PO
[2016-09-23 13:37] LABS: HEMATOCRIT 37.4 % (38.0-50.0); MCH 28.4 PG (29.0-34.0); MCHC 32.9 G/DL (30.0-36.0); MCV 86.4 FL (86-99); MEAN PLAT.VOLUME 9.8 uM^3 (9.0-12.4); PLATELET COUNT 141 K/uL (156-360); RBC DIS.WIDTH-CV 15.4 % (11.8-14.6); RBC DIS.WIDTH-SD 48.7 % (39-53); RED BLOOD COUNT 4.33 M/uL (4.00-5.50); WHITE BLOOD COUNT 6.5 K/uL (4.1-10.2)
[2016-09-23 13:46] LABS: CHLORIDE 108 mEq/L (99-109); POTASSIUM 3.4 mEq/L (3.7-5.4); SODIUM 140 mEq/L (136-147)
[2016-09-23 13:47] LABS: PROTHROMBIN TIME 10.5 SEC (10.2-12.9)
[2016-09-23 13:48] LABS: GLUCOSE 159 mg/dL (70-99)
[2016-09-23 13:49] LABS: ANION GAP 13 MEQ/L (2-14)
[2016-09-23 13:51] LABS: SERUM ETHYL ALCOHOL 153 mg/dL
[2016-09-23 13:52] LABS: GFR ESTIMATE (CALCULATED) > 59 mL/min/
[2016-09-23 13:53] LABS: PTT 28.8 SEC (25-37); UREA NITROGEN (BUN) 12 mg/dL (9-23)
[2016-09-23 14:01] LABS: TROP-I INTERPRETATION INDETERMINATE; TROPONIN-I 0.48 ng/mL (0.0-0.30)
[2016-09-23 17:03] LABS: TROP-I INTERPRETATION INDETERMINATE; TROPONIN-I 0.47 ng/mL (0.0-0.30)
[2016-09-23 18:23] VITALS: BP 135/85
== END | disposition home or self-care (01) ==
LOC: EME 12:15
PROVIDERS: Emergency Medicine
DX: R07.9 Chest pain, unspecified (principal); F10.10 Alcohol abuse, uncomplicated; F17.200 Nicotine dependence, unspecified, uncomplicated; Y90.6 Blood alcohol level of 120-199 mg/100 ml; Z87.442 Personal history of urinary calculi
CPT/HCPCS: 71020; 80048; 84484; 85027; 85610; 85730; 93005; 99281; 99285; G0480

== ENCOUNTER 2016-09-24 19:02 | Emergency (ER) | payer OTHER ==
[~2016-09-24] VITALS: Ht 165.1 cm; Wt 72.7 kg
[~2016-09-24 19:02] MED LIST changes: +ZESTORETIC 20-1 EAC1 PO
[2016-09-24 19:08] VITALS: BP 113/68
[2016-09-24 19:39] LABS: MCH 28.8 PG (29.0-34.0); MCHC 33.9 G/DL (30.0-36.0); MCV 85.1 FL (86-99); MEAN PLAT.VOLUME 10.1 uM^3 (9.0-12.4); PLATELET COUNT 164 K/uL (156-360); RBC DIS.WIDTH-CV 15.1 % (11.8-14.6); RBC DIS.WIDTH-SD 47.1 % (39-53); RED BLOOD COUNT 4.23 M/uL (4.00-5.50); WHITE BLOOD COUNT 7.8 K/uL (4.1-10.2)
[2016-09-24 19:50] LABS: CHLORIDE 99 mEq/L (99-109); POTASSIUM 3.4 mEq/L (3.7-5.4); SODIUM 136 mEq/L (136-147)
[2016-09-24 19:51] LABS: GLUCOSE 197 mg/dL (70-99)
[2016-09-24 19:53] LABS: ANION GAP 14 MEQ/L (2-14)
[2016-09-24 19:55] LABS: GFR ESTIMATE (CALCULATED) > 59 mL/min/
[2016-09-24 19:56] LABS: UREA NITROGEN (BUN) 14 mg/dL (9-23)
[2016-09-24 20:00] LABS: TROP-I INTERPRETATION INDETERMINATE; TROPONIN-I 0.46 ng/mL (0.0-0.30)
[2016-09-24 21:13] LABS: SERUM ETHYL ALCOHOL 155 mg/dL
== END 2016-09-24 21:55 | disposition left against medical advice (07) ==
LOC: EME 19:02
DX: R07.9 Chest pain, unspecified (principal); I25.2 Old myocardial infarction; F17.200 Nicotine dependence, unspecified, uncomplicated; Z86.73 Personal history of transient ischemic attack (TIA), and cerebral infarction without residual deficits; K21.9 Gastro-esophageal reflux disease without esophagitis; I10 Essential (primary) hypertension; F32.9 Major depressive disorder, single episode, unspecified; F10.10 Alcohol abuse, uncomplicated
CPT/HCPCS: 71020; 80048 91; 84484; 85027; 93005; 99281; 99282; G0480

== ENCOUNTER 2016-09-26 22:14 | Emergency (ER) | payer OTHER ==
[~2016-09-26] VITALS: Ht 165.1 cm; Wt 66.2 kg
[2016-09-26 23:10] LABS: EOSINOPHIL COUNT 0.1 K/uL (0-0.3); HEMATOCRIT 34.8 % (38.0-50.0); IMMATURE GRANULOCYTE (%) 0.3 % (0.0-0.7); INSTRUMENT ABS NEUTROPHIL CT 3.6 K/uL; LYMPHOCYTE COUNT 1.8 K/uL (1.0-2.8); MCH 28.5 PG (29.0-34.0); MCHC 33.3 G/DL (30.0-36.0); MCV 85.5 FL (86-99); MONOCYTE (%) 7.6 % (3-12); MONOCYTE COUNT 0.5 K/uL (0-0.8); NEUTROPHIL (%) 60.4 % (45-76); NEUTROPHIL COUNT 3.6 K/uL (1.8-6.4); PLATELET COUNT 124 K/uL (156-360); RBC DIS.WIDTH-CV 15.3 % (11.8-14.6); RBC DIS.WIDTH-SD 47.9 % (39-53); RED BLOOD COUNT 4.07 M/uL (4.00-5.50); WHITE BLOOD COUNT 5.9 K/uL (4.1-10.2)
[2016-09-26 23:18] LABS: CHLORIDE 108 mEq/L (99-109); POTASSIUM 3.1 mEq/L (3.7-5.4); SODIUM 141 mEq/L (136-147)
[2016-09-26 23:20] LABS: GLUCOSE 161 mg/dL (70-99)
[2016-09-26 23:21] LABS: ANION GAP 12 MEQ/L (2-14)
[2016-09-26 23:23] LABS: SERUM ETHYL ALCOHOL < 10 mg/dL
[2016-09-26 23:24] LABS: GFR ESTIMATE (CALCULATED) > 59 mL/min/
[2016-09-26 23:25] LABS: UREA NITROGEN (BUN) 21 mg/dL (9-23)
[2016-09-27 03:15] VITALS: BP 147/83
== END 2016-09-27 03:15 | disposition home or self-care (01) ==
LOC: EME 22:14
PROVIDERS: Emergency Medicine
DX: S09.90XA Unspecified injury of head, initial encounter (principal); W19.XXXA Unspecified fall, initial encounter; I10 Essential (primary) hypertension; K21.9 Gastro-esophageal reflux disease without esophagitis; R56.9 Unspecified convulsions; Z87.442 Personal history of urinary calculi; F17.200 Nicotine dependence, unspecified, uncomplicated
CPT/HCPCS: 70450; 80048; 85025; 99281; 99283; G0480

== ENCOUNTER → 2016-09-26 | Emergency (ER) | payer OTHER ==
[~2016-09-26] VITALS: Ht 165.1 cm; Wt 64.4 kg
[2016-09-26 12:31] VITALS: BP 171/110
== END | disposition left against medical advice (07) ==
LOC: EME 12:16
DX: R41.82 Altered mental status, unspecified (principal); F10.99 Alcohol use, unspecified with unspecified alcohol-induced disorder; R52 Pain, unspecified; Z53.21 Procedure and treatment not carried out due to patient leaving prior to being seen by health care provider
CPT/HCPCS: 99281; 99282

== ENCOUNTER → 2016-09-28 17:17 | Emergency (ER) | payer OTHER | END | disposition left against medical advice (07) | LOC: EME 17:17 | DX: F10.10 Alcohol abuse, uncomplicated (principal); Z53.21 Procedure and treatment not carried out due to patient leaving prior to being seen by health care provider ==

== ENCOUNTER 2016-09-30 16:48 | Emergency (ER) | payer OTHER ==
[~2016-09-30] VITALS: Ht 165.1 cm; Wt 62.3 kg
[2016-09-30 17:48] LABS: HEMATOCRIT 37.4 % (38.0-50.0); MCH 28.2 PG (29.0-34.0); MCHC 33.2 G/DL (30.0-36.0); MCV 85.2 FL (86-99); MEAN PLAT.VOLUME 9.9 uM^3 (9.0-12.4); RBC DIS.WIDTH-SD 47.3 % (39-53); RED BLOOD COUNT 4.39 M/uL (4.00-5.50)
[2016-09-30 17:50] LABS: PLATELET COUNT 214 K/uL (156-360)
[2016-09-30 17:57] LABS: CHLORIDE 107 mEq/L (99-109); POTASSIUM 3.2 mEq/L (3.7-5.4); SODIUM 142 mEq/L (136-147)
[2016-09-30 17:59] LABS: GLUCOSE 116 mg/dL (70-99)
[2016-09-30 18:00] LABS: ANION GAP 14 MEQ/L (2-14)
[2016-09-30 18:02] LABS: SERUM ETHYL ALCOHOL 227 mg/dL
[2016-09-30 18:03] LABS: GFR ESTIMATE (CALCULATED) > 59 mL/min/
[2016-09-30 18:04] LABS: UREA NITROGEN (BUN) 12 mg/dL (9-23)
[2016-10-01 01:03] VITALS: BP 125/75
== END 2016-10-01 01:10 | disposition home or self-care (01) ==
LOC: EME 16:48
PROVIDERS: Emergency Medicine
DX: F10.129 Alcohol abuse with intoxication, unspecified (principal); I10 Essential (primary) hypertension; K21.9 Gastro-esophageal reflux disease without esophagitis; I25.2 Old myocardial infarction; F32.9 Major depressive disorder, single episode, unspecified; Z86.73 Personal history of transient ischemic attack (TIA), and cerebral infarction without residual deficits; F17.200 Nicotine dependence, unspecified, uncomplicated
CPT/HCPCS: 80048; 85027; 99281; 99285; G0480

== ENCOUNTER 2016-10-01 15:51 | Emergency (ER) | payer OTHER ==
[~2016-10-01] VITALS: Ht 165.1 cm; Wt 68.0 kg
[2016-10-01 17:38] LABS: EOSINOPHIL (%) 1.4 % (0-5); EOSINOPHIL COUNT 0.1 K/uL (0-0.3); HEMATOCRIT 37.2 % (38.0-50.0); IMMATURE GRANULOCYTE (%) 0.1 % (0.0-0.7); INSTRUMENT ABS NEUTROPHIL CT 3.8 K/uL; LYMPHOCYTE COUNT 2.5 K/uL (1.0-2.8); MCH 28.5 PG (29.0-34.0); MCHC 33.6 G/DL (30.0-36.0); MCV 84.9 FL (86-99); MEAN PLAT.VOLUME 10.1 uM^3 (9.0-12.4); MONOCYTE (%) 8.3 % (3-12); MONOCYTE COUNT 0.6 K/uL (0-0.8); NEUTROPHIL (%) 54.2 % (45-76); NEUTROPHIL COUNT 3.8 K/uL (1.8-6.4); PLATELET COUNT 234 K/uL (156-360); RBC DIS.WIDTH-CV 14.9 % (11.8-14.6); RBC DIS.WIDTH-SD 46.3 % (39-53); RED BLOOD COUNT 4.38 M/uL (4.00-5.50)
[2016-10-01 18:08] LABS: CHLORIDE 105 mEq/L (99-109); POTASSIUM 3.1 mEq/L (3.7-5.4); SODIUM 142 mEq/L (136-147)
[2016-10-01 18:56] LABS: GLUCOSE 155 mg/dL (70-99)
[2016-10-01 18:57] LABS: ANION GAP 17 MEQ/L (2-14)
[2016-10-01 18:58] LABS: TOTAL BILIRUBIN 0.2 mg/dL (0.0-1.0)
[2016-10-01 18:59] LABS: SERUM ETHYL ALCOHOL 172 mg/dL
[2016-10-01 19:00] LABS: ALKALINE PHOSPHATASE 100 IU/L (3-129); GFR ESTIMATE (CALCULATED) > 59 mL/min/
[2016-10-01 19:01] LABS: UREA NITROGEN (BUN) 10 mg/dL (9-23)
[2016-10-01 19:03] LABS: LIPASE 60 U/L (1.0-51.0)
[2016-10-01 20:59] LABS: TROP-I INTERPRETATION INDETERMINATE; TROPONIN-I 0.34 ng/mL (0.0-0.30)
[2016-10-01 22:02] LABS: TROP-I INTERPRETATION INDETERMINATE; TROPONIN-I 0.39 ng/mL (0.0-0.30)
[2016-10-01 22:17] LABS: AMPHETAMINE NEGATIVE (500 ng/mL); BARBITURATES NEGATIVE (200 ng/mL); BENZODIAZEPINES PRESUMPTIVE POSITIVE (150 ng/mL); COCAINE NEGATIVE (150 ng/mL); INTERNAL CONTROLS VALID? YES; METHADONE NEGATIVE (200 ng/mL); METHAMPHETAMINE NEGATIVE (500 ng/mL); OPIATES (MORPHINE) NEGATIVE (100 ng/mL); OXYCODONE NEGATIVE (100 ng/mL); PHENCYCLIDINE NEGATIVE (25 ng/mL); PROPOXYPHENE NEGATIVE (300 ng/mL); THC CANNABINOIDS NEGATIVE (50 ng/mL); TRICYCLIC ANTIDEPRESSANTS NEGATIVE (300 ng/mL)
[2016-10-01 22:18] LABS: ADD MEDTOX COMMENT Y
[2016-10-01 22:23] VITALS: BP 158/84
[2016-10-01 22:36] LABS: BENZODIAZEPINES QUANT VALUE 0 NG/ML; BENZODIAZEPINES, URINE SCREEN Negative (200 ng/mL)
== END 2016-10-01 22:26 | disposition home or self-care (01) ==
LOC: EME 15:51
PROVIDERS: Emergency Medicine
DX: F10.129 Alcohol abuse with intoxication, unspecified (principal); I10 Essential (primary) hypertension; I25.2 Old myocardial infarction; K21.9 Gastro-esophageal reflux disease without esophagitis; Z86.73 Personal history of transient ischemic attack (TIA), and cerebral infarction without residual deficits; F17.200 Nicotine dependence, unspecified, uncomplicated
CPT/HCPCS: 71010; 80053; 83690; 84484; 84999; 85025; 93005; 99281; 99284; G0480

== ENCOUNTER 2016-10-02 17:10 | Emergency (ER) | payer OTHER ==
[~2016-10-02] VITALS: Ht 162.6 cm; Wt 75.0 kg
[2016-10-02 19:41] VITALS: BP 0/0
== END 2016-10-02 19:40 | disposition home or self-care (01) ==
LOC: EME 17:10
DX: F10.220 Alcohol dependence with intoxication, uncomplicated (principal); E11.9 Type 2 diabetes mellitus without complications; Z79.84 Long term (current) use of oral hypoglycemic drugs; I10 Essential (primary) hypertension; K21.9 Gastro-esophageal reflux disease without esophagitis; I25.2 Old myocardial infarction; Z86.73 Personal history of transient ischemic attack (TIA), and cerebral infarction without residual deficits; F32.9 Major depressive disorder, single episode, unspecified; F16.10 Hallucinogen abuse, uncomplicated; F19.10 Other psychoactive substance abuse, uncomplicated; F17.200 Nicotine dependence, unspecified, uncomplicated
CPT/HCPCS: 99281; 99283

== ENCOUNTER 2016-10-06 20:21 | Emergency (ER) | payer OTHER ==
[~2016-10-06] VITALS: Ht 165.1 cm; Wt 70.0 kg
[2016-10-07 00:48] VITALS: BP 122/80
== END 2016-10-07 00:50 | disposition home or self-care (01) ==
LOC: EME 20:21
DX: F10.129 Alcohol abuse with intoxication, unspecified (principal); W19.XXXA Unspecified fall, initial encounter; F17.200 Nicotine dependence, unspecified, uncomplicated
CPT/HCPCS: 99281; 99283

== ENCOUNTER 2016-10-13 12:57 | Emergency (ER) | payer OTHER ==
[~2016-10-13] VITALS: Ht 165.1 cm; Wt 66.1 kg
[2016-10-13 13:56] LABS: HEMATOCRIT 36.1 % (38.0-50.0); MCH 29.2 PG (29.0-34.0); MCHC 33.8 G/DL (30.0-36.0); MCV 86.4 FL (86-99); RBC DIS.WIDTH-CV 14.9 % (11.8-14.6); RBC DIS.WIDTH-SD 47.7 % (39-53); RED BLOOD COUNT 4.18 M/uL (4.00-5.50); WHITE BLOOD COUNT 6.6 K/uL (4.1-10.2)
[2016-10-13 14:05] LABS: CHLORIDE 109 mEq/L (99-109); POTASSIUM 3.2 mEq/L (3.7-5.4); SODIUM 144 mEq/L (136-147)
[2016-10-13 14:07] LABS: GLUCOSE 78 mg/dL (70-99)
[2016-10-13 14:08] LABS: ANION GAP 14 MEQ/L (2-14)
[2016-10-13 14:10] LABS: SERUM ETHYL ALCOHOL 260 mg/dL
[2016-10-13 14:11] LABS: GFR ESTIMATE (CALCULATED) > 59 mL/min/; UREA NITROGEN (BUN) 11 mg/dL (9-23)
[2016-10-13 15:18] LABS: MEAN PLAT.VOLUME 9.6 uM^3 (9.0-12.4); PLAT.SUFFICIENCY ADEQUATE
[2016-10-13 15:20] LABS: PLATELET COUNT 157 K/uL (156-360)
[2016-10-13 18:37] LABS: AMPHETAMINE NEGATIVE (500 ng/mL); BARBITURATES NEGATIVE (200 ng/mL); BENZODIAZEPINES NEGATIVE (150 ng/mL); COCAINE NEGATIVE (150 ng/mL); INTERNAL CONTROLS VALID? YES; METHADONE NEGATIVE (200 ng/mL); METHAMPHETAMINE NEGATIVE (500 ng/mL); OPIATES (MORPHINE) NEGATIVE (100 ng/mL); OXYCODONE NEGATIVE (100 ng/mL); PHENCYCLIDINE NEGATIVE (25 ng/mL); PROPOXYPHENE NEGATIVE (300 ng/mL); THC CANNABINOIDS NEGATIVE (50 ng/mL); TRICYCLIC ANTIDEPRESSANTS NEGATIVE (300 ng/mL)
[2016-10-13 19:29] VITALS: BP 138/80
== END 2016-10-13 20:10 | disposition home or self-care (01) ==
LOC: EME 12:57
PROVIDERS: Emergency Medicine
DX: M79.671 Pain in right foot (principal); E87.6 Hypokalemia; F10.10 Alcohol abuse, uncomplicated; Z87.442 Personal history of urinary calculi; I25.2 Old myocardial infarction; K21.9 Gastro-esophageal reflux disease without esophagitis; I10 Essential (primary) hypertension; Z86.73 Personal history of transient ischemic attack (TIA), and cerebral infarction without residual deficits; F17.200 Nicotine dependence, unspecified, uncomplicated; Z59.0 Homelessness
CPT/HCPCS: 73630; 80048; 85027; 99281; 99283; G0480

== ENCOUNTER 2016-10-16 11:32 | Emergency (ER) | payer OTHER ==
[~2016-10-16] VITALS: Ht 165.1 cm; Wt 66.5 kg
[2016-10-16 14:21] VITALS: BP 120/77
== END 2016-10-16 14:47 | disposition home or self-care (01) ==
LOC: EME 11:32
DX: F10.129 Alcohol abuse with intoxication, unspecified (principal); Y90.6 Blood alcohol level of 120-199 mg/100 ml; K21.9 Gastro-esophageal reflux disease without esophagitis; I10 Essential (primary) hypertension; Z59.0 Homelessness; I25.2 Old myocardial infarction; Z87.442 Personal history of urinary calculi; Z86.73 Personal history of transient ischemic attack (TIA), and cerebral infarction without residual deficits; F17.200 Nicotine dependence, unspecified, uncomplicated
CPT/HCPCS: 99281; 99284; G0480

== ENCOUNTER 2016-10-19 12:11 | Emergency (ER) | payer OTHER ==
[~2016-10-19] VITALS: Ht 152.4 cm; Wt 84.0 kg
[2016-10-19 14:47] VITALS: BP 113/74
== END 2016-10-19 14:47 | disposition home or self-care (01) ==
LOC: EME 12:11
DX: M79.671 Pain in right foot (principal); I10 Essential (primary) hypertension; K21.9 Gastro-esophageal reflux disease without esophagitis; I25.2 Old myocardial infarction; Z87.442 Personal history of urinary calculi; Z86.73 Personal history of transient ischemic attack (TIA), and cerebral infarction without residual deficits; F17.200 Nicotine dependence, unspecified, uncomplicated
CPT/HCPCS: 99281; 99283

== ENCOUNTER 2016-10-21 11:27 | Emergency (ER) | payer OTHER ==
[~2016-10-21] VITALS: Ht 162.6 cm; Wt 65.5 kg
[2016-10-21 17:27] VITALS: BP 118/70
[2016-10-21] MEDS ORDERED: LOW DOSE ASPIRI81 M1 PO (23:02)
== END 2016-10-21 17:28 | disposition home or self-care (01) ==
LOC: EME 11:27
DX: F10.129 Alcohol abuse with intoxication, unspecified (principal); M79.673 Pain in unspecified foot; R07.81 Pleurodynia; F17.200 Nicotine dependence, unspecified, uncomplicated
CPT/HCPCS: 71010; 99281; 99283

== ENCOUNTER 2016-10-21 20:48 | Observation (INO) | payer OTHER ==
[~2016-10-21] VITALS: Ht 165.1 cm; Wt 66.4 kg
[2016-10-21 21:45] LABS: HEMATOCRIT 38.1 % (38.0-50.0); MCH 29.5 PG (29.0-34.0); MCHC 34.1 G/DL (30.0-36.0); MCV 86.4 FL (86-99); MEAN PLAT.VOLUME 10.3 uM^3 (9.0-12.4); PLATELET COUNT 142 K/uL (156-360); RBC DIS.WIDTH-CV 14.5 % (11.8-14.6); RBC DIS.WIDTH-SD 46.4 % (39-53); RED BLOOD COUNT 4.41 M/uL (4.00-5.50); WHITE BLOOD COUNT 6.9 K/uL (4.1-10.2)
[2016-10-21 22:01] LABS: CHLORIDE 108 mEq/L (99-109); SODIUM 144 mEq/L (136-147)
[2016-10-21 22:03] LABS: GLUCOSE 139 mg/dL (70-99)
[2016-10-21 22:04] LABS: ANION GAP 13 MEQ/L (2-14)
[2016-10-21 22:05] LABS: POTASSIUM 3.3 mEq/L (3.7-5.4)
[2016-10-21 22:06] LABS: GFR ESTIMATE (CALCULATED) > 59 mL/min/
[2016-10-21 22:08] LABS: UREA NITROGEN (BUN) 12 mg/dL (9-23)
[2016-10-21 22:10] LABS: TROP-I INTERPRETATION POSITIVE
[2016-10-21 22:25] LABS: TROPONIN-I 0.64 ng/mL (0.0-0.30)
[2016-10-21] MEDS ORDERED: LOW DOSE ASPIRI81 M1 PO (23:02)
[2016-10-21 23:33] LABS: SERUM ETHYL ALCOHOL 193 mg/dL
[2016-10-22 01:34] LABS: TOTAL BILIRUBIN 0.2 mg/dL (0.0-1.0)
[2016-10-22 01:35] LABS: ALKALINE PHOSPHATASE 100 IU/L (3-129)
[2016-10-22 01:37] LABS: DIRECT BILIRUBIN 0.1 mg/dL (0.0-0.3)
[2016-10-22 01:38] LABS: LIPASE 81 U/L (1.0-51.0)
[2016-10-22 02:57] VITALS: BP 162/84
[2016-10-22 02:59] LABS: AMPHETAMINES QUANT VALUE 0 NG/ML; BARBITUATES QUANT VALUE 0 NG/ML; BENZODIAZEPINES QUANT VALUE 0 NG/ML; BENZODIAZEPINES, URINE SCREEN Negative (200 ng/mL); MARIJUANA QUANT VALUE 0 NG/ML; OPIATES QUANTITATIVE VALUE 0 NG/ML; PHENCYCLIDINE QUANT VALUE 0 NG/ML
[2016-10-22 05:33] LABS: TROP-I INTERPRETATION INDETERMINATE; TROPONIN-I 0.57 ng/mL (0.0-0.30)
[2016-10-22 07:41] VITALS: BP 163/82
[2016-10-22 11:03] LABS: TROP-I INTERPRETATION INDETERMINATE; TROPONIN-I 0.55 ng/mL (0.0-0.30)
[2016-10-22 11:48] VITALS: BP 147/94
[2016-10-22 15:49] VITALS: BP 141/82
[2016-10-22 20:41] VITALS: BP 143/84
[2016-10-23 00:53] VITALS: BP 132/82
[2016-10-23 04:59] VITALS: BP 144/82
[2016-10-23 06:05] LABS: HEMATOCRIT 37.2 % (38.0-50.0); MCH 29.2 PG (29.0-34.0); MCHC 33.9 G/DL (30.0-36.0); MCV 86.1 FL (86-99); PLATELET COUNT 133 K/uL (156-360); RBC DIS.WIDTH-CV 14.2 % (11.8-14.6); RBC DIS.WIDTH-SD 45.4 % (39-53); RED BLOOD COUNT 4.32 M/uL (4.00-5.50); WHITE BLOOD COUNT 5.2 K/uL (4.1-10.2)
[2016-10-23 06:28] LABS: ANION GAP 10 MEQ/L (2-14); CHLORIDE 105 MEQ/L (99-109); GFR ESTIMATE (CALCULATED) > 59 mL/min/; GLUCOSE 114 mg/dL (70-99); POTASSIUM 3.4 MEQ/L (3.7-5.4); SAMPLE HEMOLYSIS CHECK 0; SAMPLE ICTERIC CHECK 0; SAMPLE LIPEMIA CHECK 0; SODIUM 142 MEQ/L (136-147); UREA NITROGEN (BUN) 7 mg/dL (9-23)
[2016-10-23 07:57] VITALS: BP 139/82
[2016-10-23 07:57] LABS: POINT-OF-CARE USER ID ENVKC36
== END 2016-10-23 10:26 | disposition left against medical advice (07) ==
LOC: EME → EDBD 20:48 → EME 20:48 → ENRESERV 10-22 00:32 → 4EAST 10-22 00:32 → EDOF 10-22 00:32 → ENRESERV 10-22 01:08 → 4EAST 10-22 02:59
PROVIDERS: Emergency Medicine; Hospitalist
DX: R07.89 Other chest pain (principal); F10.229 Alcohol dependence with intoxication, unspecified; Y90.6 Blood alcohol level of 120-199 mg/100 ml; Z91.19 Patient's noncompliance with other medical treatment and regimen; I25.5 Ischemic cardiomyopathy; I25.10 Atherosclerotic heart disease of native coronary artery without angina pectoris; Z95.5 Presence of coronary angioplasty implant and graft; I25.2 Old myocardial infarction; E11.9 Type 2 diabetes mellitus without complications; I25.9 Chronic ischemic heart disease, unspecified; I11.9 Hypertensive heart disease without heart failure; F12.10 Cannabis abuse, uncomplicated; F17.200 Nicotine dependence, unspecified, uncomplicated; Z79.82 Long term (current) use of aspirin; Z59.0 Homelessness
CPT/HCPCS: 71020; 80048; 80076; 80306 90; 82607; 82746; 82948; 83690; 83735; 83880; 84443; 84484; 85027; 93005; 99281; 99285; G0378; G0480; J1650; J1815; J3411; J7030